=== PATIENT | female | born 2000 | race American Indian/Alaskan Native ===

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

== ENCOUNTER 2019-08-22 22:39 | Emergency (ER) | payer MEDICAID ==
[2019-08-22 22:57] VITALS: BP 138/87; PULSE 100
--- NOTE | 2019-08-23 02:15 | EDM.PDOC ---
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 Patient states she has had 2 positive tests at home in the past week. Patient states she was to last have a Depo-Provera shot in December, and did not get it. Patient states she has not had a normal period in several months, so is unsure of how far along she is. patient states today at work when going to the bathroom, she had some spotting when wiping. States she has not saturated a pad. Patient states this would be her second . Patient admits to cramping and low back pain. Patient denies any urinary symptoms, frequency, urgency, burning with urination. Onset: Today, Sudden Abdomen Pain Score (Numeric/FACES): 5 - Related Data Allergies Allergy/AdvReac Type Severity Reaction Status Date / Time Penicillins Allergy Cannot Verified 08/22/19 23:04 Remember Home Meds: Home Meds . 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: Psychiatric History: Reports: Depression, Other (See Below) Other Psychiatric History: history of cutting- noted cuts on bilateral arms Hematologic History: Reports: Anemia, Other (See Below) Other Hematologic History: requiring blood transfusion Social & Family History - Family History Family Medical History: Noncontributory - Tobacco Use Smoking Status *Q: Never Smoker Second Hand Smoke Exposure: No - Caffeine Use Caffeine Use: Reports: Coffee, Soda, Tea - Recreational Drug Use Recreational Drug Use: No - Living Situation & Occupation Living situation: Reports: with Significant Other ED ROS GENERAL - Review of Systems Review Of Systems: Comprehensive ROS is negative, except as noted in HPI. ED EXAM - Physical Exam Exam: See Below Exam Limited By: No Limitations General Appearance: Alert, WD/WN, No Apparent Distress Eye Exam: Bilateral Eye: EOMI, Normal Inspection Ears: Normal External Exam, Hearing Grossly Normal Nose: Normal Inspection Throat/Mouth: Normal Inspection, Normal Voice, No Airway Compromise Head: Atraumatic, Normocephalic Neck: Normal Inspection, Supple, Non-Tender, Full Range of Motion Respiratory/Chest: No Respiratory Distress, Lungs Clear, Normal Breath Sounds, No Accessory Muscle Use, Chest Non-Tender Cardiovascular: Normal Peripheral Pulses, Regular Rate, Rhythm, No Edema, No Gallop, No JVD, No Murmur, No Rub GI/Abdominal Exam: Normal Bowel Sounds, Soft, Non-Tender, No Organomegaly, No Distention, No Abnormal Bruit, No Mass, Pelvis Stable Rectal Exam: Deferred (Female) Exam: Normal Speculum Exam. No: Products of Conception, Tissue Present in Cervix/Vagina, Vaginal Bleeding Movement: Not Appreciated Back Exam: Normal Inspection, Full Range of Motion, NT Extremities: Normal Inspection, Normal Range of Motion, Non-Tender, Normal Capillary Refill, No Pedal Edema Neurological: Alert, Oriented, CN II-XII Intact, Normal Cognition, Normal Gait, Normal Reflexes, No Motor/Sensory Deficits Psychiatric: Normal Affect, Normal Mood Skin Exam: Warm, Dry, Intact, Normal Color, No Rash Lymphatic: No Adenopathy Course - Vital Signs Last Recorded V/S: Last Vital Signs Temp 96.1 F L 08/22/19 22:44 Pulse 100 08/22/19 22:44 Resp 19 08/22/19 22:44 BP 138/87 08/22/19 22:44 Pulse Ox 100 08/22/19 22:44 - Orders/Labs/Meds Orders: Active Orders 24 hr Category Date Time Status Heart Rate [RC] CONTINUOUS Care 08/22/19 22:48 Active POC Labs [RC] ASDIRECTED Care 08/22/19 22:48 Active CHLAMYDIA AND GONORRHEA BY TMA Routine Lab 08/22/19 22:42 Received CULTURE URINE [RM] Routine Lab 08/22/19 22:57 Received HBSAG SCREEN [REF] Urgent Lab 08/22/19 23:01 Received HEP C VIRUS AB [REF] Urgent Lab 08/22/19 23:01 Received RPR (SYPHILIS SERO) W/ RFLX [REF] Routine Lab 08/22/19 23:01 Received RUBELLA ANTIBODY, IGG [REF] Routine Lab 08/22/19 23:01 Received Labs: Laboratory Tests 08/22/19 08/22/19 08/22/19 Range/Units 22:57 22:57 23:01 WBC 9.8 (5.0-10.0) 10^3/uL RBC 4.64 (4.2-5.4) 10^6/uL Hgb 11.4 L (12.0-16.0) g/dL Hct 35.5 L (37.0-47.0) % MCV 76.5 L D (80-100) fL MCH 24.6 L (27.0-34.0) pg MCHC 32.1 L (33.0-35.0) g/dL Plt Count 302 (150-450) 10^3/uL HCG, Quant (0-25) mIU/ml Beta HCG, Quant mIU/ml Urine Color Yellow (YELLOW) Urine Appearance Slightly cloudy (CLEAR) Urine pH 7.0 (5.0-9.0) Ur Specific [place] 1.025 (1.005-1.030) Urine Protein Negative (NEGATIVE) Urine Glucose (UA) Negative (NEGATIVE) Urine Ketones Negative (NEGATIVE) Urine Occult Blood Negative (NEGATIVE) Urine Nitrite Negative (NEGATIVE) Urine Bilirubin Negative (NEGATIVE) Urine Urobilinogen 1.0 (0.2-1.0) mg/dL Ur Leukocyte Esterase Moderate H (NEGATIVE) Urine RBC 0-5 /HPF Urine WBC 10-20 H (0-5/HPF) /HPF Ur Epithelial Cells Few (NOT SEEN) /HPF Amorphous Sediment Few (NOT SEEN) /HPF Urine Bacteria Moderate H (0-FEW/HPF) /HPF Urine Mucus Few H (NOT SEEN) /LPF Urine Opiates Screen Negative (NEGATIVE) Ur Oxycodone Screen Negative (NEGATIVE) Urine Methadone Screen Negative (NEGATIVE) Ur Barbiturates Screen Negative (NEGATIVE) U Tricyclic Antidepress Negative (NEGATIVE) Ur Phencyclidine Scrn Negative (NEGATIVE) Ur Amphetamine Screen Negative (NEGATIVE) U Methamphetamines Scrn Negative (NEGATIVE) Urine MDMA Screen Negative (NEGATIVE) U Benzodiazepines Scrn Negative (NEGATIVE) Urine Cocaine Screen Negative (NEGATIVE) U Marijuana (THC) Screen Negative (NEGATIVE) HIV-1 Antibody (NONREACTIVE) HIV-2 Antibody (NONREACTIVE) HIV P24 Antigen (NONREACTIVE) Blood Type Gel Antibody Screen 08/22/19 08/22/19 08/22/19 Range/Units 23:01 23:01 23:01 WBC (5.0-10.0) 10^3/uL RBC (4.2-5.4) 10^6/uL Hgb (12.0-16.0) g/dL Hct (37.0-47.0) % MCV (80-100) fL MCH (27.0-34.0) pg MCHC (33.0-35.0) g/dL Plt Count (150-450) 10^3/uL HCG, Quant > 1350 H (0-25) mIU/ml Beta HCG, Quant 88365 mIU/ml Urine Color (YELLOW) Urine Appearance (CLEAR) Urine pH (5.0-9.0) Ur Specific [place] (1.005-1.030) Urine Protein (NEGATIVE) Urine Glucose (UA) (NEGATIVE) Urine Ketones (NEGATIVE) Urine Occult Blood (NEGATIVE) Urine Nitrite (NEGATIVE) Urine Bilirubin (NEGATIVE) Urine Urobilinogen (0.2-1.0) mg/dL Ur Leukocyte Esterase (NEGATIVE) Urine RBC /HPF Urine WBC (0-5/HPF) /HPF Ur Epithelial Cells (NOT SEEN) /HPF Amorphous Sediment (NOT SEEN) /HPF Urine Bacteria (0-FEW/HPF) /HPF Urine Mucus (NOT SEEN) /LPF Urine Opiates Screen (NEGATIVE) Ur Oxycodone Screen (NEGATIVE) Urine Methadone Screen (NEGATIVE) Ur Barbiturates Screen (NEGATIVE) U Tricyclic Antidepress (NEGATIVE) Ur Phencyclidine Scrn (NEGATIVE) Ur Amphetamine Screen (NEGATIVE) U Methamphetamines Scrn (NEGATIVE) Urine MDMA Screen (NEGATIVE) U Benzodiazepines Scrn (NEGATIVE) Urine Cocaine Screen (NEGATIVE) U Marijuana (THC) Screen (NEGATIVE) HIV-1 Antibody Non-reactive (NONREACTIVE) HIV-2 Antibody Non-reactive (NONREACTIVE) HIV P24 Antigen Non-reactive (NONREACTIVE) Blood Type O POSITIVE Gel Antibody Screen Negative - Radiology Interpretation Free Text/Narrative:: OB Ultrasound: FINDINGS: GESTATION: Gestation: Intrauterine gestation is evident at 6 weeks 5 days by crown-rump length. Heart rate: Cardiac activity present at 139 bpm. BIOMETRY: Estimated due date: Estimated date of delivery 04/10/2020. MATERNAL: Uterus: Uterus is 9 x 6 x 5.5 cm. Right adnexa: Right ovary is 3.5 x 2.6 x 2.4 cm with unremarkable appearance. Normal flow. Anechoic cyst measuring 2.4 x 2 x 1.6 cm. Left adnexa: Left ovary is 2.3 x 1.5 x 1.6 cm. Normal arterial flow. Intraperitoneal: No free pelvic fluid. IMPRESSION: 1. Viable intrauterine gestation at 6 weeks 5 days gestational age 2. Anechoic right ovarian cyst measuring 2.4 cm. Thank you for allowing us to participate in the care of your patient. Dictated and Authenticated by: Romeo Garg MD 08/23/2019 2:00 AM Central Time ([place] & [place]) See rad report Departure - Departure Time of Disposition: 02:13 Disposition: Home, Self-Care 01 Condition: Good Clinical Impression: Threatened , First trimester - Discharge Information *PRESCRIPTION DRUG MONITORING PROGRAM REVIEWED*: No *COPY OF PRESCRIPTION DRUG MONITORING REPORT IN PATIENT CAMPBELL: No Instructions: First Trimester of , [id number], Threatened Miscarriage, [id number] Forms: ED Department Discharge Additional Instructions: Follow up with your primary care facility in 3-5 weeks Begin taking a vitamin Drink plenty of water Return to ER with large amounts of bleeding Sepsis Event Note - Evaluation Sepsis Screening Result: No Definite Risk - Focused Exam Vital Signs: Vital Signs Temp Pulse Resp BP Pulse Ox 08/22/19 22:44 96.1 F L 100 19 138/87 100 Date Exam was Performed: 08/23/19 Time Exam was Performed: 04:03 - My Orders Last 24 Hours: My Active Orders 08/22/19 22:42 CHLAMYDIA AND GONORRHEA BY TMA Routine 08/22/19 22:48 Heart Rate [RC] CONTINUOUS POC Labs [RC] ASDIRECTED 08/22/19 22:57 CULTURE URINE [RM] Routine 08/22/19 23:01 HBSAG SCREEN [REF] Urgent HEP C VIRUS AB [REF] Urgent RPR (SYPHILIS SERO) W/ RFLX [REF] Routine RUBELLA ANTIBODY, IGG [REF] Routine - Assessment/Plan Last 24 Hours: My Active Orders 08/22/19 22:42 CHLAMYDIA AND GONORRHEA BY TMA Routine 08/22/19 22:48 Heart Rate [RC] CONTINUOUS POC Labs [RC] ASDIRECTED 08/22/19 22:57 CULTURE URINE [RM] Routine 08/22/19 23:01 HBSAG SCREEN [REF] Urgent HEP C VIRUS AB [REF] Urgent RPR (SYPHILIS SERO) W/ RFLX [REF] Routine RUBELLA ANTIBODY, IGG [REF] Routine
== END 2019-08-23 02:25 | disposition home or self-care (01) ==
LOC: DL.ED 22:39
DX: O20.0 Threatened abortion (principal); Z88.0 Allergy status to penicillin; Z3A.01 Less than 8 weeks gestation of pregnancy
CPT/HCPCS: 36415; 76815; 76817; 80305-QW; 81001; 84702; 85027; 86592; 86593; 86762; 86803; 86850; 86900; 86901; 87086; 87210; 87340; 87389; 87491; 87591; 99284-25

== ENCOUNTER 2020-01-28 21:27 | Emergency (ER) | payer BC, MEDICAID ==
[2020-01-28 21:38] VITALS: BP 120/75; PULSE 109
--- NOTE | 2020-01-28 22:12 | EDM.PDOC ---
ED HPI GENERAL MEDICAL PROBLEM - General Stated Complaint: SORE THROAT Time Seen by Provider: 01/28/20 22:00 Source of Information: Reports: Patient History Limitations: Reports: No Limitations - History of Present Illness INITIAL COMMENTS - FREE TEXT/NARRATIVE: This 19 yo female patient reports to the ED with a sore throat that started yesterday. The patient reports she took some cough medications yesterday, but she has not taken anything other than that. Onset Date: 01/27/20 Duration: Constant Location: Reports: Neck Quality: Reports: Other Severity: Moderate Improves with: Reports: None Worsens with: Reports: None Context: Reports: Other Associated Symptoms: Reports: No Other Symptoms Throat Pain Score (Numeric/FACES): 5 - Related Data Allergies Allergy/AdvReac Type Severity Reaction Status Date / Time Penicillins Allergy Cannot Verified 01/28/20 21:32 Remember Home Meds: Home Meds Vit37/Iron/Folic Acid [[place]] 1 tab PO DAILY 01/28/20 [History] Past Medical History - Past Health History Medical/Surgical History: Denies Medical/Surgical History [employer] History: Reports: Psychiatric History: Reports: Depression, Other (See Below) Other Psychiatric History: history of cutting- noted cuts on bilateral arms Hematologic History: Reports: Anemia, Other (See Below) Other Hematologic History: requiring blood transfusion Social & Family History - Family History Family Medical History: Noncontributory - Tobacco Use Smoking Status *Q: Never Smoker Second Hand Smoke Exposure: No - Caffeine Use Caffeine Use: Reports: Coffee - Recreational Drug Use Recreational Drug Use: No - Living Situation & Occupation Living situation: Reports: with Significant Other ED ROS ENT - Review of Systems Review Of Systems: Comprehensive ROS is negative, except as noted in HPI. ED EXAM, ENT - Physical Exam Exam: See Below Exam Limited By: No Limitations General Appearance: Alert, WD/WN, Mild Distress Eye Exam: Bilateral Eye: EOMI, Normal Inspection, PERRL Ears: Normal External Exam, Normal Canal, Hearing Grossly Normal, Normal TMs Nose: Normal Inspection, Normal Mucousa, No Blood Mouth/Throat: Normal Inspection, Normal Gums, Normal Lips, Normal Oropharynx, Normal Teeth Head: Atraumatic, Normocephalic Neck: Normal Inspection, Supple, Non-Tender, Full Range of Motion Respiratory/Chest: No Respiratory Distress, Lungs Clear, Normal Breath Sounds, No Accessory Muscle Use, Chest Non-Tender Cardiovascular: Normal Peripheral Pulses, Regular Rate, Rhythm, No Edema, No Gallop, No JVD, No Murmur, No Rub GI/Abdominal: Normal Bowel Sounds, Soft, Non-Tender, No Organomegaly, No Distention, No Abnormal Bruit, No Mass (Female) Exam: Deferred Rectal (Female) Exam: Deferred Back: Normal Inspection Extremities: Normal Inspection, Normal Range of Motion, Non-Tender, No Pedal Edema, Normal Capillary Refill Neurological: Alert, Oriented, CN II-XII Intact, Normal Cognition, Normal Gait, Normal Reflexes, No Motor/Sensory Deficits Psychiatric: Normal Affect, Normal Mood Skin: Warm, Dry, Intact, Normal Color, No Rash Lymphatic: No Adenopathy Course - Vital Signs Last Recorded V/S: Last Vital Signs Temp 36.2 C 01/28/20 21:33 Pulse 109 H 01/28/20 21:33 Resp 20 01/28/20 21:33 BP 120/75 01/28/20 21:33 Pulse Ox 100 01/28/20 21:33 - Orders/Labs/Meds Orders: Active Orders 24 hr Category Date Time Status CULTURE STREP A CONFIRMATION [RM] Stat Lab 01/28/20 21:28 Results STREP SCRN A RAPID W CULT CONF [RM] Stat Lab 01/28/20 21:28 Results Departure - Departure Time of Disposition: 22:11 Disposition: Home, Self-Care 01 Condition: Fair Clinical Impression: Sore throat (viral) - Discharge Information *PRESCRIPTION DRUG MONITORING PROGRAM REVIEWED*: Not Applicable *COPY OF PRESCRIPTION DRUG MONITORING REPORT IN PATIENT CAMPBELL: Not Applicable Instructions: Sore Throat, [id number] Forms: ED Department Discharge Care Plan Goals: The patient was advised of the examination and lab results during the visit. The patient was encouraged to take over the counter medications for temporary symptom relief. If the patient has any additional symptoms or concerns, the patient should either return to the emergency department or visit her primary care facility. Sepsis Event Note (ED) - Evaluation Sepsis Screening Result: No Definite Risk - Focused Exam Vital Signs: Vital Signs Temp Pulse Resp BP Pulse Ox 01/28/20 21:33 36.2 C 109 H 20 120/75 100 - My Orders Last 24 Hours: My Active Orders 01/28/20 21:28 CULTURE STREP A CONFIRMATION [RM] Stat STREP SCRN A RAPID W CULT CONF [RM] Stat - Assessment/Plan Last 24 Hours: My Active Orders 01/28/20 21:28 CULTURE STREP A CONFIRMATION [RM] Stat STREP SCRN A RAPID W CULT CONF [RM] Stat
== END 2020-01-28 22:15 | disposition home or self-care (01) ==
LOC: DL.ED 21:27
DX: J02.9 Acute pharyngitis, unspecified (principal); Z88.0 Allergy status to penicillin; Z79.899 Other long term (current) drug therapy
CPT/HCPCS: 87081; 87430; 99282; 99283

== ENCOUNTER 2020-04-06 01:49 | Inpatient (IN) | payer BC, MEDICAID ==
[2020-04-06] MEDS: Lactated Ringers 1,000 ML IV SCH ×3 (01:50→04:13)
[2020-04-06] MEDS ORDERED: Ondansetron 4 MG/2 ML SDV IVPUSH PRN (01:58)
[2020-04-06] MEDS ORDERED: fentaNYL 100 MCG/2 ML SDV ONE (02:01)
[2020-04-06] MEDS ORDERED: fentaNYL 100 MCG/2 ML SDV ITHECAL ONE (02:02)
[2020-04-06] MEDS ORDERED: EPINEPHrine 1 MG/1 ML Amp ONE ×2 (02:02)
[2020-04-06] MEDS ORDERED: Carboprost Tromethamine 250 MCG/1 ML Amp ONE (02:19)
[2020-04-06] MEDS ORDERED: Methylergonovine 0.2 MG/1 ML Amp ONE (02:19)
[2020-04-06] MEDS ORDERED: Misoprostol 400 MCG (4 X 100 MCG TAB) ONE (02:19)
--- NOTE | 2020-04-06 02:34 | PCM.PRNOTE ---
- Free Text/Narrative Note: Requested to provide analgesia to full term patient in severe pain. Upon entering the room, patient is sitting on edge of bed complaining of severe abdominal/pelvic pain and discomfort. Procedure was discussed with patient including adverse outcomes and expectations. Pt consented to analgesia, SAB/IT. Pt placed into a proper sitting position. Landmarks for SAB/IT were identified and marked. Hands were washed and appropriate PPE was applied. Back was prepped with betadine x3. A sterile, transparent, fenestrated drape was applied. Excess betadine was removed. Using 3 mL of a 1% lidocaine solution, a skin wheel was placed at the L2/L3 interspace. A 24 ga (4 inch) Pencan spinal needle was inserted until positive for CSF. Negative for heme or paresthesias. Injected fentanyl 30 mcg, sufentanil 25 mcg, and 7.5 mg of a 0.75% bupivacaine solution with an epi wash. Pt was placed left lateral tilt position for approximately 20 minutes. There were zero complications or adverse outcomes. Will continue to monitor. Procedure Date & Time: 04/06/20 [id number]
[2020-04-06] MEDS ORDERED: Tranexamic Acid 1,000 MG in Sodium Chloride 0.9% 100 ML IV PRN (02:48)
[2020-04-06] MEDS ORDERED: Acetaminophen 325 MG Tab PO PRN (02:48)
[2020-04-06] MEDS ORDERED: Lidocaine 1% 30 ML SDV INJECT PRN (02:48)
[2020-04-06] MEDS ORDERED: Misoprostol 400 MCG (4 X 100 MCG TAB) RECTAL PRN (02:48)
[2020-04-06] MEDS ORDERED: Methylergonovine 0.2 MG/1 ML Amp IM PRN (02:48)
[2020-04-06] MEDS ORDERED: Sodium Chloride 0.9% 10 ML Syringe FLUSH PRN (02:48)
[2020-04-06] MEDS ORDERED: Carboprost Tromethamine 250 MCG/1 ML Amp IM PRN (02:48)
[2020-04-06] MEDS: Oxytocin/Normal Saline 30 UNIT/500 ML BAG IV SCH ×2 (05:10→06:27)
[2020-04-06] MEDS ORDERED: Simethicone 80 MG Tab.Chew PO PRN (05:38)
[2020-04-06] MEDS ORDERED: Benzocaine/Menthol 20%-0.5% Spray 56 GM Canister TOP PRN (05:38)
[2020-04-06] MEDS ORDERED: Oxytocin 10 Units/1 ML SDV IM PRN (05:38)
--- NOTE | 2020-04-06 05:45 | PCM.LDHP ---
L&D History of Present Illness - General Date of Service: 04/06/20 Admit Problem/Dx: Patient Status Order with Admit Dx/Problem 04/06/20 01:15 Patient Status [ADT] Routine Admission Diagnosis/Problem Admission Diagnosis/Problem Labor established Source of Information: Patient History Limitations: Reports: No Limitations - History of Present Illness Introduction:: 19-year-old at 40w0d presents to L&D for increased contractions. Contractions started to increase in frequency and severity around 2200 on 04/05/2020. Patient arrived to L&D at 0100 on 04/06 and noted that contractions were 3-5 minutes apart. No vaginal bleeding or leaking of fluid. Baby has been active. No new headaches or vision changes. 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: Psychiatric History: Reports: Depression, Other (See Below) Other Psychiatric History: history of cutting- noted cuts on bilateral arms Hematologic History: Reports: Anemia, Other (See Below) Other Hematologic History: requiring blood transfusion - Past Surgical History HEENT Surgical History: Reports: None Social & Family History - Family History Family Medical History: Noncontributory - Caffeine Use Caffeine Use: Reports: Coffee - Living Situation & Occupation Living situation: Reports: with Significant Other H&P Review of Systems - Review of Systems: Review Of Systems: See Below General: Reports: No Symptoms HEENT: Reports: No Symptoms Pulmonary: Reports: No Symptoms Cardiovascular: Reports: No Symptoms Gastrointestinal: Reports: No Symptoms Musculoskeletal: Reports: Back Pain Skin: Reports: No Symptoms Neurological: Reports: No Symptoms L&D Exam - Exam Exam: See Below - Vital Signs Weight: 92.986 kg - OB Specific Contraction Intensity: Moderate to Strong Movement: Active Heart Tones: Present Heart Tones per Min: 135 Heart Rate (FHR) Variability: Moderate (6-25 bmp) Presentation: Vertex - Rosario Score Rosario Score Cervix Position: Anterior Rosario Score Consistency: Soft Rosario Score Effacement: >80% Rosario Score Dilation: > 5 cm Rosario Score Infant's Station: -1 ,0 Rosario Score Total: 12 - Exam General: Alert, Oriented HEENT: Conjunctiva Clear Lungs: Clear to Auscultation, Normal Respiratory Effort Cardiovascular: Regular Rate, Regular Rhythm Extremities: Normal Inspection, Non-Tender, No Pedal Edema Skin: Warm, Dry, Intact - Patient Data Lab Results Last 24 hrs: Laboratory Results - last 24 hr 04/06/20 04/06/20 04/06/20 Range/Units 00:45 01:50 01:50 WBC 8.4 (5.0-10.0) 10^3/uL RBC 4.30 (4.2-5.4) 10^6/uL Hgb 8.9 L D (12.0-16.0) g/dL Hct 30.1 L (37.0-47.0) % MCV 70.0 L D (80-100) fL MCH 20.7 L (27.0-34.0) pg MCHC 29.6 L (33.0-35.0) g/dL Plt Count 340 (150-450) 10^3/uL SARS CoV-2 RNA Rapid HARRY Negative (NEGATIVE) Blood Type O POSITIVE Gel Antibody Screen Negative Result Diagrams: 04/06/20 01:50 - Problem List (1) care in third trimester SNOMED Code(s): 354462688, 23041703, 50306480, 552524632, 027519999 ICD Code: Z34.93 - ENCNTR FOR SUPRVSN OF NORMAL PREG, UNSP, THIRD TRIMESTER Status: Acute Current Visit: Yes (2) Anemia affecting in third trimester SNOMED Code(s): 34674877, 71425475 ICD Code: O99.013 - ANEMIA COMPLICATING , THIRD TRIMESTER Status: Acute Current Visit: Yes (3) Tobacco use affecting in third trimester, antepartum SNOMED Code(s): 143857341, 432964977, 743701471 ICD Code: O99.333 - SMOKING (TOBACCO) COMPLICATING , THIRD TRIMESTER Status: Acute Current Visit: Yes (4) Rubella non-immune status, antepartum SNOMED Code(s): 975953372 ICD Code: O99.891 - OTH DISEASES AND CONDITIONS COMPLICATING ; Z28.3 - UNDERIMMUNIZATION STATUS Status: Acute Current Visit: Yes (5) Late care SNOMED Code(s): 575379018, 741703781 ICD Code: O09.30 - SUPRVSN OF PREG W INSUFFICIENT ANTENAT CARE, UNSP TRIMESTER Status: Acute Current Visit: Yes (6) Chlamydia infection affecting SNOMED Code(s): 9241879374666 ICD Code: O98.819 - OTH MATERNAL INFEC/PARASTC DISEASES COMP PREG, UNSP TRI; A74.9 - CHLAMYDIAL INFECTION, UNSPECIFIED Status: Acute Priority: Low Current Visit: Yes Problem Details: Tested positive, was treated, repeat testing was negative Problem List Initiated/Reviewed/Updated: Yes Orders Last 24hrs: Active Orders 24 hr Category Date Time Status Patient Status [ADT] Routine ADT 04/06/20 01:15 Active Notify Provider Vital Signs OB [RC] ASDIRECTED Care 04/06/20 05:38 Ordered Up ad Edvi [RC] ASDIRECTED Care 04/06/20 02:48 Active Up ad Devi [RC] ASDIRECTED Care 04/06/20 05:38 Ordered Vital Signs [RC] PFP Care 04/06/20 05:38 Ordered Regular Diet [DIET] Diet 04/06/20 Breakfast Ordered CBC W/O DIFF,HEMOGRAM [HEME] Routine Lab 04/07/20 06:00 Ordered RPR (SYPHILIS SERO) W/ RFLX [REF] Routine Lab 04/07/20 06:00 Ordered Acetaminophen [TylenoL] Med 04/06/20 02:48 Active 650 mg PO Q4H PRN Benzocaine/Menthol [Dermoplast Pain Relief [place]] Med 04/06/20 05:38 Ordered See Dose Instructions TOP Q4H PRN Carboprost Tromethamine [Hemabate DS] Med 04/06/20 02:48 Active 250 mcg IM ASDIRECTED PRN Docusate Sodium [Colace] Med 04/06/20 05:38 Ordered 100 mg PO BID PRN Ferrous Sulfate Med 04/06/20 09:00 Ordered 325 mg PO BID Ibuprofen [Motrin] Med 04/06/20 05:38 Ordered 800 mg PO Q8H PRN Lactated Ringers [Ringers, Lactated] 1,000 ml Med 04/06/20 02:00 Active IV ASDIRECTED Lidocaine 1% [Xylocaine-MPF 1%] Med 04/06/20 02:48 Active 30 ml INJECT ASDIRECTED PRN Methylergonovine [Methergine] Med 04/06/20 02:48 Active 0.2 mg IM ASDIRECTED PRN Ondansetron [Zofran] Med 04/06/20 01:58 Active 4 mg IVPUSH Q4H PRN Oxytocin [Pitocin] Med 04/06/20 05:38 Ordered 10 unit IM ONETIME PRN Oxytocin/Normal Saline [Pitocin in NS 30 UNIT/500 ML] Med 04/06/20 02:00 Active 30 unit in 500 ml IV TITRATE Vit with Ca/FA/Iron [ Plus Iron] Med 04/06/20 09:00 Ordered 1 each PO DAILY Simethicone Med 04/06/20 05:38 Ordered 80 mg PO Q4H PRN Sodium Chloride 0.9% [Saline Flush] Med 04/06/20 02:48 Active 10 ml FLUSH ASDIRECTED PRN Tranexamic Acid [Cyklokapron] 1,000 mg Med 04/06/20 02:48 Active Sodium Chloride 0.9% [Normal Saline] 100 ml IV ONETIME miSOPROStoL [Cytotec] Med 04/06/20 02:48 Active 800 mcg RECTAL ASDIRECTED PRN witch M[place] [Medi-Pads] Med 04/06/20 05:38 Ordered 1 each TOP Q4HR PRN Assess Lochia [WOMSER] Per Unit Routine Oth 04/06/20 05:38 Ordered Assess Uterine Involution [WOMSER] Per Unit Routine Oth 04/06/20 05:38 Ordered Breast Pump [WOMSER] Per Unit Routine Oth 04/06/20 05:38 Ordered Ice Therapy [OM.PC] Per Unit Routine Oth 04/06/20 05:38 Ordered Perineal Care [OM.PC] Per Unit Routine Oth 04/06/20 05:38 Ordered Saline Lock Insert [OM.PC] Routine Oth 04/06/20 02:48 Ordered Sitz Bath [OM.PC] Per Unit Routine Oth 04/06/20 05:38 Ordered Resuscitation Status Routine Resus Stat 04/06/20 05:38 Ordered Medication Orders Acetaminophen (Tylenol) 650 mg PO Q4H PRN PRN Reason: Pain (Mild 1-3) and fever Carboprost Tromethamine (Hemabate Ds) 250 mcg IM ASDIRECTED PRN PRN Reason: HEMORRHAGE Lactated Ringer's (Ringers, Lactated) 1,000 mls @ 125 mls/hr IV ASDIRECTED NOMI Last Admin: 04/06/20 04:13 Dose: 125 mls/hr Documented by: Infusion: 04/06/20 04:13 Dose: 125 mls/hr Documented by: Admin: 04/06/20 02:30 Dose: 125 mls/hr Documented by: Infusion: 04/06/20 02:30 Dose: 125 mls/hr Documented by: Admin: 04/06/20 01:50 Dose: 125 mls/hr Documented by: LUIS Oxytocin/Sodium Chloride (Pitocin In Ns 30 Unit/500 Ml) 30 unit in 500 mls @ 2 mls/hr IV TITRATE NOMI; Protocol Tranexamic Acid 1,000 mg/ (Sodium Chloride) 110 mls @ 660 mls/hr IV ONETIME PRN PRN Reason: Bleeding Lidocaine HCl (Xylocaine-Mpf 1%) 30 ml INJECT ASDIRECTED PRN PRN Reason: Perineal Repair Methylergonovine Maleate (Methergine) 0.2 mg IM ASDIRECTED PRN PRN Reason: Hemorrhage Misoprostol (Cytotec) 800 mcg RECTAL ASDIRECTED PRN PRN Reason: Hemorrhage Ondansetron HCl (Zofran) 4 mg IVPUSH Q4H PRN PRN Reason: Nausea/Vomiting Last Admin: 04/06/20 02:05 Dose: 4 mg Documented by: LUIS Sodium Chloride (Saline Flush) 10 ml FLUSH ASDIRECTED PRN PRN Reason: Keep Vein Open Assessment/Plan Comment:: 1. Admit to L&D and initiate routine intrapartum orders 2. Patient does desire intrathecal 3. AROM when patient more comfortable 4. Expectant management. Anticipate Charissa Mckeon MD
--- NOTE | 2020-04-06 05:57 | PCM.DEL ---
L & D Note - General Info Date of Service: 04/06/20 Mother's Due Date: 04/06/20 - Delivery Note Labor: Spontaneous Delivery Outcome: Livebirth Infant Delivery Method: Spontaneous Vaginal Delivery-Single Presentation: Vertex Nuchal Cord: None Prep: Povidone-Iodine (Betadine Anesthesia Type: Intrathecal, Local Anesthetic: Lidocaine (Xylocaine) 1% Plain Local Anesthetic Volume: 4cc Amniotic Fluid Description: Clear Episiotomy Type: None Laceration: Labial (Bilateral) Suture type: Vicryl Suture size: 4-0 Placenta: Intact, Spontaneous Cord: 3 Vessels Estimated Blood Loss: 300 : Bulb Syringe, Stimulated, Warmed, Fine Used Score 1 min: 8 Score 5 min: 9 Delivery Comments (Free Text/Narrative):: 19-year-old presented to L&D in active labor. She was noted to be 5 cm upon admission. Patient tested negative for COVID. She did desire an intrathcal so this was performed. Patient SROM'd and rapidly progressed to complete dilation at 0430. Patient began to push around 0450. Initially, patient had difficulty pushing; however, after a couple of attempts, patient started pushing well and delivered a viable male infant after 2 contractions. Infant was placed on the mother's chest. Apgars were noted to be 8 and 9 at 1 and 5 minutes respectively. Cord was clamped x 2 and cut. Cord blood was collected. The placenta delivered shortly after and was noted to be intact. Bleeding was initially brisk. Pitocin rate was increased to 999 ml/hr and uterine massage was performed. Bleeding improved about 1 minute later. Perineum was inspected and noted to be intact. Bilateral labial lacerations were also noted. These both continued to bleed despite application of pressure so each laceration was repaired with 4-0 Vicryl suture in a running fashion. Uterine tone was noted to be firm, and bleeding was noted to be appropriate. Patient tolerated the procedure well, and there were no immediate complications. - General Info Date of Service: 04/06/20 - Patient Data Weight - Most Recent: 92.986 kg Lab Results Last 24 Hours: Laboratory Results - last 24 hr 04/06/20 04/06/20 04/06/20 Range/Units 00:45 01:50 01:50 WBC 8.4 (5.0-10.0) 10^3/uL RBC 4.30 (4.2-5.4) 10^6/uL Hgb 8.9 L D (12.0-16.0) g/dL Hct 30.1 L (37.0-47.0) % MCV 70.0 L D (80-100) fL MCH 20.7 L (27.0-34.0) pg MCHC 29.6 L (33.0-35.0) g/dL Plt Count 340 (150-450) 10^3/uL SARS CoV-2 RNA Rapid HARRY Negative (NEGATIVE) Blood Type O POSITIVE Gel Antibody Screen Negative Med Orders - Current: Current Medications Acetaminophen (Tylenol) 650 mg PO Q4H PRN PRN Reason: Pain (Mild 1-3) and fever Benzocaine/Menthol (Dermoplast Pain Relief [place]) 0 gm TOP Q4H PRN PRN Reason: Perineal comfort measures Carboprost Tromethamine (Hemabate Ds) 250 mcg IM ASDIRECTED PRN PRN Reason: HEMORRHAGE Docusate Sodium (Colace) 100 mg PO BID PRN PRN Reason: Constipation Ferrous Sulfate (Ferrous Sulfate) 325 mg PO BID NOMI Lactated Ringer's (Ringers, Lactated) 1,000 mls @ 125 mls/hr IV ASDIRECTED NOMI Last Admin: 04/06/20 04:13 Dose: 125 mls/hr Documented by: Oxytocin/Sodium Chloride (Pitocin In Ns 30 Unit/500 Ml) 30 unit in 500 mls @ 2 mls/hr IV TITRATE NOMI; Protocol Tranexamic Acid 1,000 mg/ (Sodium Chloride) 110 mls @ 660 mls/hr IV ONETIME PRN PRN Reason: Bleeding Ibuprofen (Motrin) 800 mg PO Q8H PRN PRN Reason: Mild Pain or Fever Lidocaine HCl (Xylocaine-Mpf 1%) 30 ml INJECT ASDIRECTED PRN PRN Reason: Perineal Repair Methylergonovine Maleate (Methergine) 0.2 mg IM ASDIRECTED PRN PRN Reason: Hemorrhage Misoprostol (Cytotec) 800 mcg RECTAL ASDIRECTED PRN PRN Reason: Hemorrhage Ondansetron HCl (Zofran) 4 mg IVPUSH Q4H PRN PRN Reason: Nausea/Vomiting Last Admin: 04/06/20 02:05 Dose: 4 mg Documented by: Oxytocin (Pitocin) 10 unit IM ONETIME PRN PRN Reason: Bleeding Prenat Multivit/[place]/Iron/Folic Ac ( Plus Iron) 1 each PO DAILY NOMI Simethicone (Simethicone) 80 mg PO Q4H PRN PRN Reason: Gas Sodium Chloride (Saline Flush) 10 ml FLUSH ASDIRECTED PRN PRN Reason: Keep Vein Open Witch Colleen (Medi-Pads) 1 each TOP Q4HR PRN PRN Reason: Perineal Comfort Measure Discontinued Medications Carboprost Tromethamine (Hemabate Ds) Confirm Administered Dose 250 mcg .ROUTE .STK-MED ONE Stop: 04/06/20 02:20 Last Admin: 04/06/20 02:55 Dose: Not Given Documented by: Epinephrine HCl (Adrenalin) Confirm Administered Dose 1 mg .ROUTE .STK-MED ONE Stop: 04/06/20 02:03 Last Admin: 04/06/20 02:54 Dose: Not Given Documented by: Fentanyl (Sublimaze) Confirm Administered Dose 100 mcg .ROUTE .STK-MED ONE Stop: 04/06/20 02:02 Last Admin: 04/06/20 02:54 Dose: Not Given Documented by: Methylergonovine Maleate (Methergine) Confirm Administered Dose 0.2 mg .ROUTE .STK-MED ONE Stop: 04/06/20 02:20 Last Admin: 04/06/20 02:55 Dose: Not Given Documented by: Misoprostol (Cytotec) Confirm Administered Dose 800 mcg .ROUTE .STK-MED ONE Stop: 04/06/20 02:20 Last Admin: 04/06/20 02:55 Dose: Not Given Documented by: Sufentanil Citrate (Sufenta) Confirm Administered Dose 50 mcg .ROUTE .STK-MED ONE Stop: 04/06/20 02:03 Last Admin: 04/06/20 02:54 Dose: Not Given Documented by: - Problem List & Annotations (1) care in third trimester SNOMED Code(s): 223596784, 08668565, 96420663, 292600080, 578971070 Code(s): Z34.93 - ENCNTR FOR SUPRVSN OF NORMAL PREG, UNSP, THIRD TRIMESTER Status: Acute Current Visit: Yes (2) Anemia affecting in third trimester SNOMED Code(s): 37622472, 83192298 Code(s): O99.013 - ANEMIA COMPLICATING , THIRD TRIMESTER Status: Acute Current Visit: Yes (3) Tobacco use affecting in third trimester, antepartum SNOMED Code(s): 260220846, 468887888, 209221271 Code(s): O99.333 - SMOKING (TOBACCO) COMPLICATING , THIRD TRIMESTER Status: Acute Current Visit: Yes (4) Rubella non-immune status, antepartum SNOMED Code(s): 931947498 Code(s): O99.891 - OTH DISEASES AND CONDITIONS COMPLICATING ; Z28.3 - UNDERIMMUNIZATION STATUS Status: Acute Current Visit: Yes (5) Late care SNOMED Code(s): 283748773, 271802730 Code(s): O09.30 - SUPRVSN OF PREG W INSUFFICIENT ANTENAT CARE, UNSP TRIMESTER Status: Acute Current Visit: Yes (6) Chlamydia infection affecting SNOMED Code(s): 9525043569893 Code(s): O98.819 - OTH MATERNAL INFEC/PARASTC DISEASES COMP PREG, UNSP TRI; A74.9 - CHLAMYDIAL INFECTION, UNSPECIFIED Status: Acute Priority: Low Current Visit: Yes Annotation/Comment:: Tested positive, was treated, repeat testing was negative (7) Obstetric labial laceration, delivered, current hospitalization SNOMED Code(s): 041019251, 188586269, 853009267 Code(s): O70.0 - FIRST DEGREE PERINEAL LACERATION DURING DELIVERY Status: Acute Current Visit: Yes Annotation/Comment:: Bilateral, repaired - Problem List Review Problem List Initiated/Reviewed/Updated: Yes - My Orders Last 24 Hours: My Active Orders 04/06/20 01:15 Patient Status [ADT] Routine 04/06/20 01:58 Ondansetron [Zofran] 4 mg IVPUSH Q4H PRN 04/06/20 02:00 Lactated Ringers [Ringers, Lactated] 1,000 ml IV ASDIRECTED Oxytocin/Normal Saline [Pitocin in NS 30 UNIT/500 ML] 30 unit in 500 ml IV TITRATE 04/06/20 02:48 Up ad Devi [RC] ASDIRECTED Acetaminophen [TylenoL] 650 mg PO Q4H PRN Carboprost Tromethamine [Hemabate DS] 250 mcg IM ASDIRECTED PRN Lidocaine 1% [Xylocaine-MPF 1%] 30 ml INJECT ASDIRECTED PRN Methylergonovine [Methergine] 0.2 mg IM ASDIRECTED PRN Sodium Chloride 0.9% [Saline Flush] 10 ml FLUSH ASDIRECTED PRN Tranexamic Acid [Cyklokapron] 1,000 mg Sodium Chloride 0.9% [Normal Saline] 100 ml IV ONETIME miSOPROStoL [Cytotec] 800 mcg RECTAL ASDIRECTED PRN Saline Lock Insert [OM.PC] Routine 04/06/20 05:38 Notify Provider Vital Signs OB [RC] ASDIRECTED Up ad Devi [RC] ASDIRECTED Vital Signs [RC] PFP Benzocaine/Menthol [Dermoplast Pain Relief [place]] See Dose Instructions TOP Q4H PRN Docusate Sodium [Colace] 100 mg PO BID PRN Ibuprofen [Motrin] 800 mg PO Q8H PRN Oxytocin [Pitocin] 10 unit IM ONETIME PRN Simethicone 80 mg PO Q4H PRN witch Colleen [Medi-Pads] 1 each TOP Q4HR PRN Assess Lochia [WOMSER] Per Unit Routine Assess Uterine Involution [WOMSER] Per Unit Routine Breast Pump [WOMSER] Per Unit Routine Ice Therapy [OM.PC] Per Unit Routine Perineal Care [OM.PC] Per Unit Routine Sitz Bath [OM.PC] Per Unit Routine Resuscitation Status Routine 04/06/20 Breakfast Regular Diet [DIET] 04/06/20 09:00 Ferrous Sulfate 325 mg PO BID Vit with Ca/FA/Iron [ Plus Iron] 1 each PO DAILY 04/07/20 06:00 CBC W/O DIFF,HEMOGRAM [HEME] Routine RPR (SYPHILIS SERO) W/ RFLX [REF] Routine - Assessment Assessment:: 19-year-old now , status post at 40w0d - Plan Plan:: 1. Initiate routine orders 2. Plans to bottle feed 3. Will check CBC tomorrow morning. Due to already low hemoglobin, will start ferrous sulfate 325 mg BID 4. Anticipate discharge 04/08/2020 Charissa Mckeon MD
[2020-04-06] MEDS: Ibuprofen 800 MG Tab PO PRN ×2 (06:07→15:25)
[2020-04-06] MEDS: Docusate Sodium 100 MG Cap PO PRN ×2 (08:59→21:12)
[2020-04-06] MEDS: Ferrous Sulfate 325 MG Tab PO SCH ×2 (08:59→21:12)
[2020-04-06] MEDS: Prenatal Multivitamin with Calcium/Folic Acid/Iron Tab PO SCH (08:59)
[2020-04-07] MEDS ORDERED: Measles, Mumps & Rubella Vaccine 0.5 ML SDV SUBCUT ONE (08:58)
[2020-04-07] MEDS: Ferrous Sulfate 325 MG Tab PO SCH (09:14)
[2020-04-07] MEDS: Ibuprofen 800 MG Tab PO PRN (09:14)
[2020-04-07] MEDS: Docusate Sodium 100 MG Cap PO PRN (09:14)
[2020-04-07] MEDS: Prenatal Multivitamin with Calcium/Folic Acid/Iron Tab PO SCH (09:14)
[2020-04-07 09:42] VITALS: BP 123/80; PULSE 91
--- NOTE | 2020-04-07 16:46 | PCM.DCSUM1 ---
Discharge Summary - Hospital Course Free Text/Narrative:: 19-year-old now s/p at 40w0d Diagnosis: Stroke: No - Discharge Data Discharge Date: 04/07/20 Discharge Disposition: Home, Self-Care 01 Condition: Good - Referral to Home Health Primary Care Physician: Kee Mckeon MD - Discharge Diagnosis/Problem(s) (1) care in third trimester SNOMED Code(s): 532717249, 16900409, 39426685, 190600466, 771037485 ICD Code: Z34.93 - ENCNTR FOR SUPRVSN OF NORMAL PREG, UNSP, THIRD TRIMESTER Status: Acute (2) Anemia affecting in third trimester SNOMED Code(s): 18277718, 24962573 ICD Code: O99.013 - ANEMIA COMPLICATING , THIRD TRIMESTER Status: Acute (3) Tobacco use affecting in third trimester, antepartum SNOMED Code(s): 856572560, 470220486, 787262095 ICD Code: O99.333 - SMOKING (TOBACCO) COMPLICATING , THIRD TRIMESTER Status: Acute (4) Rubella non-immune status, antepartum SNOMED Code(s): 911793618 ICD Code: O99.891 - OTH DISEASES AND CONDITIONS COMPLICATING ; Z28.3 - UNDERIMMUNIZATION STATUS Status: Acute (5) Late care SNOMED Code(s): 361466418, 286517114 ICD Code: O09.30 - SUPRVSN OF PREG W INSUFFICIENT ANTENAT CARE, UNSP TRIMESTER Status: Acute (6) Chlamydia infection affecting SNOMED Code(s): 7172315853924 ICD Code: O98.819 - OTH MATERNAL INFEC/PARASTC DISEASES COMP PREG, UNSP TRI; A74.9 - CHLAMYDIAL INFECTION, UNSPECIFIED Status: Acute Priority: Low Problem Details: Tested positive, was treated, repeat testing was negative (7) Obstetric labial laceration, delivered, current hospitalization SNOMED Code(s): 350666306, 849913039, 912028268 ICD Code: O70.0 - FIRST DEGREE PERINEAL LACERATION DURING DELIVERY Status: Acute Problem Details: Bilateral, repaired - Patient Summary/Data Operative Procedure(s) Performed: None Complications: None Consults: None Labs Pending at D/C: None Recommended Follow-up Testing/Procedures: None Planned Operative Procedure(s) after DC: None Hospital Course: Please see subjective section - Patient Instructions Diet: Usual Diet as Tolerated Activity: As Tolerated, No Lifting Over 20 Pounds Driving: May Drive Today Showering/Bathing: May Shower Notify Provider of: Fever, Increased Pain, Nausea and/or Vomiting - Discharge Plan *PRESCRIPTION DRUG MONITORING PROGRAM REVIEWED*: Not Applicable *COPY OF PRESCRIPTION DRUG MONITORING REPORT IN PATIENT CAMPBELL: Not Applicable Home Medications: Home Meds Vit37/Iron/Folic Acid [Prenata] 1 tab PO DAILY 01/28/20 [History] Acetaminophen [Tylenol] 650 mg PO Q4H PRN tablet 04/07/20 [Rx] Docusate Sodium [Colace] 100 mg PO BID PRN cap 04/07/20 [Rx] Ferrous Sulfate 325 mg PO BID tablet 04/07/20 [Rx] Ibuprofen [Motrin] 800 mg PO Q8H PRN tablet 04/07/20 [Rx] Patient Handouts: Vaginal Delivery Referrals: Charissa Mckeon MD [Primary Care Provider] - (Please schedule 6 week appointment. ) - Discharge Summary/Plan Comment DC Time >30 min.: No Discharge Summary/Plan Comment: Discharge home today. Follow-up in 6-8 weeks for routine care. Routine discharge information provided. All questions were answered. - General Info Date of Service: 04/07/20 Admission Dx/Problem (Free Text: Patient Status Order with Admit Dx/Problem 04/06/20 01:15 Patient Status [ADT] Routine Admission Diagnosis/Problem Admission Diagnosis/Problem Labor established Subjective Update: Patient is doing well. Tolerating a general diet. No fever or chills. Pale but denies dizziness or lightheadedness. Ambulating without difficulty. Urinating and passing Functional Status: Reports: Pain Controlled, Tolerating Diet, Ambulating, Urinating. Denies: New Symptoms - Patient Data Vitals - Most Recent: Last Vital Signs Temp 37.3 C 04/07/20 09:41 Pulse 91 04/07/20 09:41 Resp 16 04/07/20 09:41 BP 123/80 04/07/20 09:41 Pulse Ox 98 04/07/20 09:41 Weight - Most Recent: 92.986 kg Lab Results - Last 24 hrs: Laboratory Results - last 24 hr 04/07/20 Range/Units 05:24 WBC 11.0 H (5.0-10.0) 10^3/uL RBC 3.52 L (4.2-5.4) 10^6/uL Hgb 7.1 L D (12.0-16.0) g/dL Hct 25.0 L (37.0-47.0) % MCV 71.0 L (80-100) fL MCH 20.2 L (27.0-34.0) pg MCHC 28.4 L (33.0-35.0) g/dL Plt Count 293 (150-450) 10^3/uL Med Orders - Current: Current Medications Discontinued Medications Acetaminophen (Tylenol) 650 mg PO Q4H PRN PRN Reason: Pain (Mild 1-3) and fever Benzocaine/Menthol (Dermoplast Pain Relief Bates) 0 gm TOP Q4H PRN PRN Reason: Perineal comfort measures Last Admin: 04/06/20 06:16 Dose: 1 spray Documented by: Carboprost Tromethamine (Hemabate Ds) Confirm Administered Dose 250 mcg .ROUTE .STK-MED ONE Stop: 04/06/20 02:20 Last Admin: 04/06/20 02:55 Dose: Not Given Documented by: Carboprost Tromethamine (Hemabate Ds) 250 mcg IM ASDIRECTED PRN PRN Reason: HEMORRHAGE Docusate Sodium (Colace) 100 mg PO BID PRN PRN Reason: Constipation Last Admin: 04/07/20 09:14 Dose: 100 mg Documented by: Epinephrine HCl (Adrenalin) Confirm Administered Dose 1 mg .ROUTE .STK-MED ONE Stop: 04/06/20 02:03 Last Admin: 04/06/20 02:54 Dose: Not Given Documented by: Epinephrine HCl (Adrenalin) 0.1 mg .XX .STK-MED ONE Stop: 04/06/20 02:03 Fentanyl (Sublimaze) Confirm Administered Dose 100 mcg .ROUTE .STK-MED ONE Stop: 04/06/20 02:02 Last Admin: 04/06/20 02:54 Dose: Not Given Documented by: Fentanyl (Sublimaze) 30 mcg ITHECAL .STK-MED ONE Stop: 04/06/20 02:03 Ferrous Sulfate (Ferrous Sulfate) 325 mg PO BID NOMI Last Admin: 04/07/20 09:14 Dose: 325 mg Documented by: Lactated Ringer's (Ringers, Lactated) 1,000 mls @ 125 mls/hr IV ASDIRECTED NOMI Last Admin: 04/06/20 04:13 Dose: 125 mls/hr Documented by: Oxytocin/Sodium Chloride (Pitocin In Ns 30 Unit/500 Ml) 30 unit in 500 mls @ 2 mls/hr IV TITRATE NOMI; Protocol Last Titration: 04/06/20 09:00 Dose: 0 munits/min, 0 mls/hr Documented by: Tranexamic Acid 1,000 mg/ (Sodium Chloride) 110 mls @ 660 mls/hr IV ONETIME PRN PRN Reason: Bleeding Ibuprofen (Motrin) 800 mg PO Q8H PRN PRN Reason: Mild Pain or Fever Last Admin: 04/07/20 09:14 Dose: 800 mg Documented by: Lidocaine HCl (Xylocaine-Mpf 1%) 30 ml INJECT ASDIRECTED PRN PRN Reason: Perineal Repair Last Admin: 04/06/20 05:10 Dose: 30 ml Documented by: Measles/Mumps/Rubella Vaccine Live (M-M-R Ii Vaccine) 0.5 ml SUBCUT .ONCE ONE Stop: 04/07/20 08:59 Last Admin: 04/07/20 09:14 Dose: 0.5 ml Documented by: Methylergonovine Maleate (Methergine) Confirm Administered Dose 0.2 mg .ROUTE .STK-MED ONE Stop: 04/06/20 02:20 Last Admin: 04/06/20 02:55 Dose: Not Given Documented by: Methylergonovine Maleate (Methergine) 0.2 mg IM ASDIRECTED PRN PRN Reason: Hemorrhage Misoprostol (Cytotec) Confirm Administered Dose 800 mcg .ROUTE .STK-MED ONE Stop: 04/06/20 02:20 Last Admin: 04/06/20 02:55 Dose: Not Given Documented by: Misoprostol (Cytotec) 800 mcg RECTAL ASDIRECTED PRN PRN Reason: Hemorrhage Ondansetron HCl (Zofran) 4 mg IVPUSH Q4H PRN PRN Reason: Nausea/Vomiting Last Admin: 04/06/20 02:05 Dose: 4 mg Documented by: Oxytocin (Pitocin) 10 unit IM ONETIME PRN PRN Reason: Bleeding Prenat Multivit/Ashe/Iron/Folic Ac ( Plus Iron) 1 each PO DAILY NOMI Last Admin: 04/07/20 09:14 Dose: 1 each Documented by: Simethicone (Simethicone) 80 mg PO Q4H PRN PRN Reason: Gas Sodium Chloride (Saline Flush) 10 ml FLUSH ASDIRECTED PRN PRN Reason: Keep Vein Open Sufentanil Citrate (Sufenta) Confirm Administered Dose 50 mcg .ROUTE .STK-MED ONE Stop: 04/06/20 02:03 Last Admin: 04/06/20 02:54 Dose: Not Given Documented by: Sufentanil Citrate (Sufenta) 25 mcg ITHECAL .STK-MED ONE Stop: 04/06/20 02:03 David Macias (Medi-Pads) 1 each TOP Q4HR PRN PRN Reason: Perineal Comfort Measure
== END 2020-04-07 11:06 | disposition home or self-care (01) | DRG 560 ==
LOC: DL.OBCHECK 01:49 → DL.OB 02:06 → OBSVTOIN 05:05
PROVIDERS: ADMIT Family Medicine; ATTEND Family Medicine
PROC: 10E0XZZ Delivery of Products of Conception, External Approach (ICD-10-PCS; principal; 2020-04-06)
PROC: 0HQ9XZZ Repair Perineum Skin, External Approach (ICD-10-PCS; 2020-04-06)
DX: O48.0 Post-term pregnancy (principal); Z3A.40 40 weeks gestation of pregnancy; Z37.0 Single live birth; O70.0 First degree perineal laceration during delivery; O98.82 Other maternal infectious and parasitic diseases complicating childbirth; O99.02 Anemia complicating childbirth; D64.9 Anemia, unspecified; O99.334 Smoking (tobacco) complicating childbirth; Z20.828 Contact with and (suspected) exposure to other viral communicable diseases
CPT/HCPCS: 01967; 36415; 59409; 85027; 86592; 86850; 86900; 86901; 90471; 90707; A9270-GY; J0171; J2001; J2405; J2590; J3010; J7120; U0002

== ENCOUNTER 2020-11-27 04:15 | Emergency (ER) | payer BC, MEDICAID ==
[2020-11-27 04:25] VITALS: BP 147/96; PULSE 119
[2020-11-27] MEDS ORDERED: Acetaminophen 500 MG Tab PO ONE (04:53)
--- NOTE | 2020-11-27 04:53 | EDM.PDOC ---
ED HPI GENERAL MEDICAL PROBLEM - General Chief Complaint: Lower Extremity Injury/Pain Stated Complaint: INJURED RIGHT ANKLE Time Seen by Provider: 11/27/20 04:40 Source of Information: Reports: Patient, RN, RN Notes Reviewed History Limitations: Reports: No Limitations - History of Present Illness INITIAL COMMENTS - FREE TEXT/NARRATIVE: Kusum is a 19 y/o female who presents to the ED via personal vehicle with complaints of left ankle pain. The patient reports she injured her ankle while speed walking in sandals four days ago; she notes her ankle inwardly rotated. She states the pain, swelling, and ecchymosis have progressively worsened since the injury to the point that ambulation is difficult. She denies history of injury or trauma to the affected extremity. She has taken multiple doses of ibuprofen and acetaminophen which offer her [id number] alleviation of pain. 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: Psychiatric History: Reports: Depression, Other (See Below) Other Psychiatric History: history of cutting- noted cuts on bilateral arms Hematologic History: Reports: Anemia, Other (See Below) Other Hematologic History: requiring blood transfusion - Past Surgical History HEENT Surgical History: Reports: None Social & Family History - Family History Family Medical History: No Pertinent Family History - Tobacco Use Tobacco Use Status *Q: Never Tobacco User Second Hand Smoke Exposure: No - Caffeine Use Caffeine Use: Reports: Coffee - Recreational Drug Use Recreational Drug Use: No - Living Situation & Occupation Living situation: Reports: with Significant Other Review of Systems - Review of Systems Review Of Systems: Comprehensive ROS is negative, except as noted in HPI. ED EXAM, GENERAL - Physical Exam Exam: See Below Exam Limited By: No Limitations General Appearance: Alert, No Apparent Distress Eye Exam: Bilateral Eye: EOMI, Normal Inspection, PERRL (3mm) Throat/Mouth: Normal Inspection, Normal Oropharynx, Normal Voice, No Airway Compromise Head: Atraumatic, Normocephalic Neck: Normal Inspection, Supple, Non-Tender, Full Range of Motion Respiratory/Chest: No Respiratory Distress, Lungs Clear, Normal Breath Sounds, No Accessory Muscle Use, Chest Non-Tender Cardiovascular: Normal Peripheral Pulses, Regular Rate, Rhythm, No Edema, No Gallop, No JVD, No Murmur, No Rub Peripheral Pulses: 1+: Posterior Tibial (L), Posterior Tibial (R), 2+: Radial (L), Radial (R), Dorsalis Pedis (L), Dorsalis Pedis (R) GI/Abdominal: Normal Bowel Sounds, Soft, Non-Tender, No Distention, No Abnormal Bruit, No Mass, Pelvis Stable Back Exam: Normal Inspection, Full Range of Motion Extremities: Normal Capillary Refill, Joint Swelling (Right lateral ankle), Leg Pain (To right ankle), Limited Range of Motion (Pain with dorsiflexion and plan tar flexion), Increased Warmth (To right ankle with bruising noted). No: Mottled, Pallor, Redness Neurological: Alert, Oriented, CN II-XII Intact, Normal Cognition, Normal Re flexes, No Motor/Sensory Deficits, Abnormal Gait (Right limping gait). No: Normal Gait Psychiatric: Normal Affect, Normal Mood Skin Exam: Warm, Dry, Intact, No Rash, Ecchymosis (To right inferior lateral ankle), Increased Warmth (To right lateral ankle). No: Erythema, Mottled, Pallor, Petechiae Course - Vital Signs Last Recorded V/S: Last Vital Signs Temp 99.5 F 11/27/20 04:19 Pulse 119 H 11/27/20 04:19 Resp 18 11/27/20 04:19 BP 147/96 H 11/27/20 04:19 Pulse Ox 99 11/27/20 04:19 - Orders/Labs/Meds Meds: Medications Discontinued Medications Generic Name Dose Route Start Last Admin Trade Name Freq PRN Reason Stop Dose Admin Acetaminophen 1,000 mg 11/27/20 04:53 11/27/20 05:05 Acetaminophen 500 Mg Tab PO 11/27/20 04:54 1,000 mg ONETIME ONE Administration - Radiology Interpretation Free Text/Narrative:: [facility] [place] [facility] Final Radiology Report Call: [phone] assistance Online chat: [email or web address] Name: KUSUM TSAI Age: 19Years F Date: 11/27/2020 SSN: -- : 2000 Study: CR ANKLE MIN 3V RT Requesting Physician: eJnnifer Navas Images: 3 Addl Studies: Provided Clinical History: rolled ankle 4 days ago Contrast: Contrast Medium: Contrast Amount: Contrast Method: CONFIDENTIALITY STATEMENT This report is intended only for use by the referring physician, and only in accordance with law. If you received this in error, call [phone]. Page 1 of 1 PROCEDURE INFORMATION: Exam: XR Right Ankle Exam date and time: 11/27/2020 5:08 AM Age: 19 years old Clinical indication: Pain; Ankle; Right; Additional info: Rolled ankle 4 days ago TECHNIQUE: Imaging protocol: XR Right ankle. Views: 3 or more views. COMPARISON: No relevant prior studies available. FINDINGS: Bones/joints: Normal. Soft tissues: Soft tissue swelling but no acute fracture or dislocation. IMPRESSION: Soft tissue swelling but no acute fracture or dislocation. Thank you for allowing us to participate in the care of your patient. Dictated and Authenticated by: Abdullahi Mane MD 11/27/2020 6:11 AM Central Time ([place] & Sea) - Re-Assessments/Exams Free Text/Narrative Re-Assessment/Exam: 11/28/20 Patient verbalized improvement in symptoms following medication administration. Findings of examination and imaging reviewed with patient. Discussed supportive cares for ankle sprain with patient. Red flag signs and symptoms which would warrant reevaluation reviewed. Patient verbalized understanding and agreement with the plan of care. Departure - Departure Time of Disposition: 06:38 Disposition: Home, Self-Care 01 Condition: Good Clinical Impression: Right ankle sprain Qualifiers: Encounter type: initial encounter Involved ligament of ankle: unspecified ligament Qualified Code(s): S93.401A - Sprain of unspecified ligament of right ankle, initial encounter - Discharge Information *PRESCRIPTION DRUG MONITORING PROGRAM REVIEWED*: Not Applicable *COPY OF PRESCRIPTION DRUG MONITORING REPORT IN PATIENT CAMPBELL: Not Applicable Instructions: Ankle Sprain, [id number] Referrals: Charissa Mckeon MD [Primary Care Provider] - Forms: ED Department Discharge Additional Instructions: 1.) You may take ibuprofen (Advil/Motrin) 400mg every six hours, as pain and swelling persists. You may also take acetaminophen (Tylenol) 650mg every six hours, as pain persists. You may stagger these medications so you are receiving a dose every three hours. 2.) You may apply ice to the affected area, as pain and swelling persist. 3.) Follow up with your primary care provider in 5-7 should symptoms persist, or sooner should they worsen. Sepsis Event Note (ED) - Evaluation Sepsis Screening Result: No Definite Risk
--- NOTE | 2020-11-27 06:11 | CR ---
PROCEDURE INFORMATION: Exam: XR Right Ankle Exam date and time: 11/27/2020 5:08 AM Age: 19 years old Clinical indication: Pain; Ankle; Right; Additional info: Rolled ankle 4 days ago TECHNIQUE: Imaging protocol: XR Right ankle. Views: 3 or more views. COMPARISON: No relevant prior studies available. FINDINGS: Bones/joints: Normal. Soft tissues: Soft tissue swelling but no acute fracture or dislocation. IMPRESSION: Soft tissue swelling but no acute fracture or dislocation.
== END 2020-11-27 06:45 | disposition home or self-care (01) ==
LOC: DL.ED 04:15
DX: S93.401A Sprain of unspecified ligament of right ankle, initial encounter (principal); Z88.0 Allergy status to penicillin; X50.1XXA Overexertion from prolonged static or awkward postures, initial encounter
CPT/HCPCS: 73610; 99283; A9270; 99282

== ENCOUNTER 2020-11-30 10:25 | Inpatient (IN) | payer MEDICAID ==
--- NOTE | 2020-11-30 10:42 | EDM.PDOC ---
ED HPI GENERAL MEDICAL PROBLEM - General Chief Complaint: Skin Complaint Stated Complaint: INFECTED FOOT Time Seen by Provider: 11/30/20 10:37 Source of Information: Reports: Patient, Old Records, Provider (Simran Montoya NP), RN, RN Notes Reviewed History Limitations: Reports: No Limitations - History of Present Illness INITIAL COMMENTS - FREE TEXT/NARRATIVE: Pt sent from [facility] by Simran Montoya NP for evaluation and treatment of right lower leg cellulitis. Pt states she twisted and sprained her right ankle on 11/23/20. She was seen here in the ER on 11/27/20, had a negative ankle x-ray and diagnosed with ankle sprain. Over the past couple of days she reports development of a friction type sore on the top of her right foot, followed by redness, pain, and increased warmth that has spread up to the right knee. Admits to feverish feeling, but has not measured temperature. In clinic today was found to have WBC of 14.1. The clinic practitioner called the spitalist for direct admission, but was advised to send the pt to the ER. Onset: Gradual Duration: Constant, Getting Worse Location: Reports: Lower Extremity, Right Quality: Reports: Burning Severity: Moderate Improves with: Reports: None Worsens with: Reports: None Associated Symptoms: Reports: No Other Symptoms Right Foot Pain Score (Numeric/FACES): 10 - Related Data Allergies Allergy/AdvReac Type Severity Reaction Status Date / Time Penicillins Allergy Cannot Verified 11/27/20 04:25 Remember Home Meds: Home Meds . 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: Psychiatric History: Reports: Depression, Other (See Below) Other Psychiatric History: history of cutting- noted cuts on bilateral arms Hematologic History: Reports: Anemia, Other (See Below) Other Hematologic History: requiring blood transfusion - Past Surgical History HEENT Surgical History: Reports: None Social & Family History - Family History Family Medical History: No Pertinent Family History - Caffeine Use Caffeine Use: Reports: Coffee - Living Situation & Occupation Living situation: Reports: with Significant Other Review of Systems - Review of Systems Review Of Systems: Comprehensive ROS is negative, except as noted in HPI. ED EXAM, GENERAL - Physical Exam Exam: See Below Exam Limited By: No Limitations General Appearance: Alert, WD/WN, No Apparent Distress, Obese Nose: Normal Inspection Throat/Mouth: Normal Inspection, Normal Lips, Normal Voice, No Airway Compromise Head: Atraumatic, Normocephalic Neck: Normal Inspection, Supple, Non-Tender, Full Range of Motion Respiratory/Chest: No Respiratory Distress, Lungs Clear, Normal Breath Sounds, No Accessory Muscle Use, Chest Non-Tender Cardiovascular: Normal Peripheral Pulses, Regular Rate, Rhythm, No Edema, Tachycardia GI/Abdominal: Normal Bowel Sounds, Soft, Non-Tender Back Exam: Normal Inspection Extremities: Normal Range of Motion, No Pedal Edema, Normal Capillary Refill, Leg Pain (Rt foot to knee, abrasion to dorsal foot, erythema, increased warmth, and tenderness to knee) Neurological: Alert, Oriented, Normal Cognition, No Motor/Sensory Deficits Psychiatric: Normal Affect, Normal Mood Course - Vital Signs Last Recorded V/S: Last Vital Signs Temp 98.5 F 11/30/20 10:47 Pulse 100 11/30/20 10:47 Resp 18 11/30/20 10:47 BP 134/67 11/30/20 10:47 Pulse Ox 100 11/30/20 10:47 - Orders/Labs/Meds Orders: Active Orders 24 hr Category Date Time Status Peripheral IV Care [RC] . DIRECTED Care 11/30/20 10:48 Active C-REACTIVE PROTEIN [CHEM] Stat Lab 11/30/20 10:57 Received COMPREHENSIVE METABOLIC PN,CMP [CHEM] Stat Lab 11/30/20 10:57 Received CULTURE BLOOD [BC] Stat Lab 11/30/20 10:57 Received CULTURE BLOOD [BC] Stat Lab 11/30/20 11:04 Received HCG QUALITATIVE,SERUM [CHEM] Stat Lab 11/30/20 10:57 Received LACTATE SEPSIS W/ REFLEX [CHEM] Stat Lab 11/30/20 10:57 Received Sodium Chloride 0.9% [Normal Saline] 1,000 ml Med 11/30/20 10:49 Active IV .BOLUS Sodium Chloride 0.9% [Saline Flush] Med 11/30/20 10:48 Active 10 ml FLUSH ASDIRECTED PRN Vancomycin 1,500 mg Med 11/30/20 10:50 Active Sodium Chloride 0.9% [Normal Saline] 500 ml IV ONETIME Blood Culture x2 Reflex Set [OM.PC] Stat Oth 11/30/20 10:46 Ordered Peripheral IV Insertion Adult [OM.PC] Stat Oth 11/30/20 10:48 Ordered Medication Orders Sodium Chloride (Normal Saline) 1,000 mls @ 999 mls/hr IV .BOLUS ONE Stop: 11/30/20 11:49 Vancomycin HCl 1,500 mg/ (Sodium Chloride) 500 mls @ 333.333 mls/hr IV ONETIME ONE Stop: 11/30/20 12:19 Sodium Chloride (Sodium Chloride 0.9% 10 Ml Syringe) 10 ml FLUSH ASDIRECTED PRN PRN Reason: Keep Vein Open Last Admin: 11/30/20 11:02 Dose: 10 ml Documented by: TRISHA Labs: Laboratory Tests 11/30/20 Range/Units 10:57 WBC 13.9 H (5.0-10.0) 10^3/uL RBC 5.01 (4.2-5.4) 10^6/uL Hgb 10.8 L D (12.0-16.0) g/dL Hct 35.0 L (37.0-47.0) % MCV 69.9 L (80-100) fL MCH 21.6 L (27.0-34.0) pg MCHC 30.9 L (33.0-35.0) g/dL Plt Count 382 D (150-450) 10^3/uL Neut % (Auto) 78.2 H (42.2-75.2) % Lymph % (Auto) 13.1 L (20.5-50.1) % Alfalfa % (Auto) 8.0 (2-8) % Eos % (Auto) 0.6 L (1.0-3.0) % Baso % (Auto) 0.1 (0.0-1.0) % Meds: Medications Generic Name Dose Route Start Last Admin Trade Name Freq PRN Reason Stop Dose Admin Sodium Chloride 1,000 mls @ 999 mls/hr 11/30/20 10:49 Normal Saline IV 11/30/20 11:49 .BOLUS ONE Vancomycin HCl 1,500 mg/ 500 mls @ 333.333 mls/hr 11/30/20 10:50 Sodium Chloride IV 11/30/20 12:19 ONETIME ONE Sodium Chloride 10 ml 11/30/20 10:48 11/30/20 11:02 Sodium Chloride 0.9% 10 Ml Syringe FLUSH 10 ml ASDIRECTED PRN Administration Keep Vein Open Discontinued Medications Generic Name Dose Route Start Last Admin Trade Name Freq PRN Reason Stop Dose Admin Diphenhydramine HCl 25 mg 11/30/20 10:49 Diphenhydramine 50 Mg/Ml Sdv IVPUSH 11/30/20 10:50 ONETIME ONE Ketorolac Tromethamine 30 mg 11/30/20 10:50 Ketorolac 30 Mg/Ml Sdv IVPUSH 11/30/20 10:51 ONETIME ONE Ondansetron HCl 4 mg 11/30/20 10:49 Ondansetron 4 Mg/2 Ml Sdv IV 11/30/20 10:50 ONETIME ONE Departure - Departure Time of Disposition: 11:17 (admitted to Dr. Silvestre) Disposition: Admitted As Inpatient 65 Condition: Fair Clinical Impression: Cellulitis of right lower extremity - Discharge Information *PRESCRIPTION DRUG MONITORING PROGRAM REVIEWED*: Not Applicable *COPY OF PRESCRIPTION DRUG MONITORING REPORT IN PATIENT CAMPBELL: Not Applicable Forms: ED Department Discharge Sepsis Event Note (ED) - Focused Exam Vital Signs: Vital Signs Temp Pulse Resp BP Pulse Ox 11/30/20 10:47 98.5 F 100 18 134/67 100 - My Orders Last 24 Hours: My Active Orders 11/30/20 10:46 Blood Culture x2 Reflex Set [OM.PC] Stat 11/30/20 10:48 Peripheral IV Care [RC] . DIRECTED Sodium Chloride 0.9% [Saline Flush] 10 ml FLUSH ASDIRECTED PRN Peripheral IV Insertion Adult [OM.PC] Stat 11/30/20 10:49 Sodium Chloride 0.9% [Normal Saline] 1,000 ml IV .BOLUS 11/30/20 10:50 Vancomycin 1,500 mg Sodium Chloride 0.9% [Normal Saline] 500 ml IV ONETIME 11/30/20 10:57 C-REACTIVE PROTEIN [CHEM] Stat COMPREHENSIVE METABOLIC PN,CMP [CHEM] Stat CULTURE BLOOD [BC] Stat HCG QUALITATIVE,SERUM [CHEM] Stat LACTATE SEPSIS W/ REFLEX [CHEM] Stat 11/30/20 11:04 CULTURE BLOOD [BC] Stat - Assessment/Plan Last 24 Hours: My Active Orders 11/30/20 10:46 Blood Culture x2 Reflex Set [OM.PC] Stat 11/30/20 10:48 Peripheral IV Care [RC] . DIRECTED Sodium Chloride 0.9% [Saline Flush] 10 ml FLUSH ASDIRECTED PRN Peripheral IV Insertion Adult [OM.PC] Stat 11/30/20 10:49 Sodium Chloride 0.9% [Normal Saline] 1,000 ml IV .BOLUS 11/30/20 10:50 Vancomycin 1,500 mg Sodium Chloride 0.9% [Normal Saline] 500 ml IV ONETIME 11/30/20 10:57 C-REACTIVE PROTEIN [CHEM] Stat COMPREHENSIVE METABOLIC PN,CMP [CHEM] Stat CULTURE BLOOD [BC] Stat HCG QUALITATIVE,SERUM [CHEM] Stat LACTATE SEPSIS W/ REFLEX [CHEM] Stat 11/30/20 11:04 CULTURE BLOOD [BC] Stat
[2020-11-30] MEDS ORDERED: Sodium Chloride 0.9% 10 ML Syringe FLUSH PRN ×2 (10:48→13:10)
[2020-11-30] MEDS ORDERED: diphenhydrAMINE 50 MG/ML SDV IVPUSH ONE (10:49)
[2020-11-30] MEDS ORDERED: Ondansetron 4 MG/2 ML SDV IV ONE (10:49)
[2020-11-30] MEDS ORDERED: Sodium Chloride 0.9% 1,000 ML IV ONE (10:49)
[2020-11-30] MEDS ORDERED: Ketorolac 30 MG/ML SDV IVPUSH ONE (10:50)
[2020-11-30 11:29] LABS: ANION GAP 13.1 mEq/L (7-13); CHLORIDE,CL 97 mmol/L (98-107); SODIUM,NA 133 mmol/L (136-145)
--- NOTE | 2020-11-30 12:00 | PCM.SN.2 ---
- Free Text/Narrative Note: START OF DOCTOR ALETHEA HISTORY AND PHYSICAL / CONSULTATION NOTE Chief Complaint: Right lower extremity pain History of Present Illness: The patient is 1-year-old female who presents for treatment of right leg pain. She states pain is approximately 72 hours prior to mention. She states that the time she sprained her ankle while twisting it while walking on steps. Since that time she has developed purpura as well as erythema as well as edema. She currently rates her right leg pain is a 10 out of 10 although her outward appearance does not come close to matching the subjective rating of pain. She describes the pain as a pressure she states that she is taking it ibuprofen Advil home which has not improved the pain. She admits to onset of fever, rigors, nausea, vomiting. She denies any other complaints. She denies paresthesia/anesthesia of her right lower extremity. She presents for further evaluation Surgical History: Never Family History: Diabetes, coronary disease, hypertension Social History: Tobacco: Former smoker Alcohol: Denies Caffeine: Coffee, tea, cola Drugs: Past marijuana use. Denies any other drug use past present Allergies: Penicillin Code Status: Full Pertinent Laboratory Results / Pertinent Radiology Results / Pertinent Diagnostic Results / Pertinent Vital Signs: Blood pressure 134/67. pulse 100, respirations 18, temperature 98.5 degrees, 100% room air, white blood count 13.9, hemoglobin 10.8, MCV 69.9 Physical Examination: General: -Alert -No acute distress -No dyspnea -No tachypnea -Obese Head: -Atraumatic -Normocephalic Eyes: -Pupils equally round and reactive to light and accommodation -Extraocular muscles intact Neurological: -Cranial nerves II-XII intact Neck: -No jugular venous distention -No thyromegaly -No cervical lymphadenopathy Heart: -Regular rate -Regular rhythm -No murmurs -No gallops -No rubs Lungs: -No wheeze -No rhonchi -No rales Abdomen: -Normal bowel sounds in all four quadrants -No rebound -No guarding -No tenderness Extremities: -2/4 pulse in all four extremities -No clubbing -No cyanosis -Right lower extremity edema present -No calf tenderness present bilaterally -Negative Homans sign bilaterally Musculoskeletal: -5/5 bilateral upper extremity strength -5/5 left lower extremity plantar dorsiflexion strength. Restriction of range of motion of right lower extremity due to edema/pain -Sensorium of bilateral upper extremities are equal and intact -Sensorium of bilateral lower extremities are equal and intact Additional Details / Additional Findings / Exceptions / Miscellaneous: There is purpura from the ankle to the proximal third of the right leg with splotches of erythema. Assessment / Plan: Right lower extremity edema. Query cellulitis, however ruptured Achilles tendon cannot be excluded given the degree of purpura, and right lower extremity DVT must be excluded as well. Vasculitis is in the differential diagnosis as well. Vancomycin IV to be dosed by pharmacy plus Rocephin 1 g IV daily. Demarcate and date the margin of erythema daily. Right lower extremity ultrasound pending. Until DVT is ruled out, Lovenox 100 mg subcutaneously every 12 hours. Check HIV and hepatitis panel. If there is no improvement in the purpura/erythema within 40 hours, I will check right lower extremity MRI to rule out Achilles tendon rupture History of self-mutilation Depression Query history of hepatitis C. Hepatitis panel pending Microcytic anemia. Will monitor hemoglobin levels intermittently. Check serum ferritin, iron panel, fecal occult blood Obesity. Patient counseled regarding lifestyle modification DVT prophylaxis. Lovenox 100 mg subcutaneously every 12 hours Disposition: Anticipate discharge in 72 to 96 hours END OF DOCTOR EMAMIS HISTORY AND PHYSICAL / CONSULTATION NOTE
[2020-11-30] MEDS ORDERED: Enoxaparin 100 MG/1 ML Syringe SUBCUT SCH (12:15)
[2020-11-30] MEDS: cefTRIAXone 1 GM in Sodium Chloride 0.9% 50 ML IV SCH (13:18)
[2020-11-30] MEDS: Iron Sucrose Complex 100 MG in Sodium Chloride 0.9% 100 ML IV SCH (14:05)
[2020-11-30] MEDS: Potassium Chloride 10 MEQ Tab.ER PO SCH ×2 (14:08→16:48)
[2020-11-30] MEDS: Ascorbic Acid 500 MG Tab PO SCH (14:08)
[2020-11-30] MEDS: Sodium Chloride 0.9% 1,000 ML IV SCH (14:21)
--- NOTE | 2020-11-30 16:32 | US ---
EXAMINATION: Venous Doppler Lwr Ext Rt SEX: Female AGE: 19 years CLINICAL HISTORY: 19-year-old female with right lower extremity tenderness and swelling (edema). Rule out DVT. Interpretation: Negative exam. No sign of intraluminal echogenic thrombus and there is normal compression of the deep veins right calf, knee and thigh. Satisfactory augmentation and venous waveforms demonstrated respectively in the posterior tibial veins of the right calf, popliteal vein behind the right knee, and possibly in the superficial/common femoral veins of the right thigh and groin. No popliteal or Ramos's cyst. No subcutaneous hematoma.
[2020-11-30] MEDS: Ondansetron 4 MG/2 ML SDV IVPUSH PRN ×2 (16:47→23:39)
[2020-11-30] MEDS: Acetaminophen 325 MG Tab PO PRN (18:42)
[2020-12-01] MEDS: Acetaminophen 325 MG Tab PO PRN ×4 (02:16→17:36)
[2020-12-01] MEDS: Sodium Chloride 0.9% 1,000 ML IV SCH ×2 (03:58→17:30)
[2020-12-01 07:01] LABS: ANION GAP 14.9 mEq/L (7-13)
--- NOTE | 2020-12-01 07:44 | PCM.SN.2 ---
- Free Text/Narrative Note: START OF DOCTOR ALETHEA PROGRESS NOTE Subjective: The patient Franky that she is still having pain of her right leg. She indicates it is unchanged from November 30, 2020. She denies anesthesia/paresthesia of the right lower extremity. Overnight she denies fever, rigors, nausea, vomiting, cough, wheeze, abdominal pain, chest pain, dyspnea. I explained the patient her current medical condition and plan of care and have answered all of her questions Objective: General: -Alert -No acute distress -No dyspnea -No tachypnea -Morbidly obese Heart: -Regular rate -Regular rhythm -No murmurs -No gallops -No rubs Lungs: -No wheeze -No rhonchi -No rales Abdomen: -Normal bowel sounds in all four quadrants -No rebound -No guarding -No tenderness Extremities: -2/4 pulse in all four extremities -No clubbing -No cyanosis -Right lower extremity is edematous Additional Details / Additional Findings / Exceptions / Miscellaneous: Compared with my examination on November 30, 2020, the margin of erythema has surpassed the line of demarcation and is now more proximal on her right leg. Right lower extremity demonstrates purpura and erythema. Sensorium of right lower extremity is the same as the left lower extremity. Patient has 5 out of 5 bilateral plantar and dorsiflexion strength Pertinent Laboratory Results / Pertinent Radiology Results / Pertinent Diagnostic Results / Pertinent Vital Signs: Vital signs stable. Platelets count 11.6, hemoglobin 9, MCV 70.9, creatinine 1.54, AST 58, ALT 66, alkaline phosphatase 139 Assessment / Plan: Right lower extremity edema. Query cellulitis, however ruptured Achilles tendon cannot be excluded given the degree of purpura. Vasculitis is in the differential diagnosis as well. Vancomycin IV to be dosed by pharmacy plus Rocephin 1 g IV daily. Demarcate and date the margin of erythema daily. Right lower extremity ultrasound negative. HIV negative. hepatitis panel pending. MRI of right leg pending Hyponatremia. Will monitor sodium levels intermittently. IV normal saline 75 mils per hour Hypokalemia. Will monitor potassium levels intermittently and supplement as necessary Hyperproteinemia. SPEP pending. UPEP pending. Acute renal insufficiency. Will monitor creatinine intermittently. IV normal saline 75 mL's per hour History of self-mutilation Depression Query history of hepatitis C. Hepatitis panel pending Iron deficiency anemia. Will monitor hemoglobin levels intermittently. Fecal occult blood pending. Vitamin C 500 mg p.o. daily plus iron sucrose 100 mg IV daily Obesity. Patient counseled regarding lifestyle modification DVT prophylaxis. Bilateral DENNIS navarrete Disposition: Anticipate discharge in 96 to 120 hours END OF DOCTOR EMAMIS PROGRESS NOTE
[2020-12-01] MEDS: Ascorbic Acid 500 MG Tab PO SCH (08:25)
[2020-12-01] MEDS ORDERED: Enoxaparin 40 MG/0.4 ML Syringe SUBCUT SCH (09:00)
[2020-12-01] MEDS: cefTRIAXone 1 GM in Sodium Chloride 0.9% 50 ML IV SCH (13:19)
[2020-12-01] MEDS: Iron Sucrose Complex 100 MG in Sodium Chloride 0.9% 100 ML IV SCH (14:55)
[2020-12-01] MEDS ORDERED: Water For Injection, Sterile 20 ML ONE (23:39)
[2020-12-02] MEDS: Sodium Chloride 0.9% 1,000 ML IV SCH ×3 (02:03→20:53)
[2020-12-02 06:52] LABS: ANION GAP 13.9 mEq/L (7-13)
--- NOTE | 2020-12-02 07:36 | PCM.SN.2 ---
- Free Text/Narrative Note: START OF DOCTOR EMAMIS PROGRESS NOTE Subjective: The patient indicates the pain and the edema of her right lower extremity are unchanged from my encounter with resume 2020. Overnight denies fever, rigors, nausea, vomiting, cough, wheeze, abdominal pain, chest pain, dyspnea, or any other constitutional complaints. The patient indicates she is urinating frequently. I explained to the patient her current medical condition and plan of care and I have answered all of her questions Objective: General: -Alert -No acute distress -No dyspnea -No tachypnea -Morbidly obese Heart: -Regular rate -Regular rhythm -No murmurs -No gallops -No rubs Lungs: -No wheeze -No rhonchi -No rales Abdomen: -Normal bowel sounds in all four quadrants -No rebound -No guarding -No tenderness Extremities: -2/4 pulse in all four extremities -No clubbing -No cyanosis -Right lower extremity is edematous Additional Details / Additional Findings / Exceptions / Miscellaneous: Compared with my examination on December 01, 2020, the erythema has receded from the line of demarcation. Edema appears to be unchanged. Right lower extremity appears to be less erythematous. Sensorium of right lower extremity is intact/equivalent to left lower extremity Pertinent Laboratory Results / Pertinent Radiology Results / Pertinent Diagn ostic Results / Pertinent Vital Signs: Heart rate 105 bpm, white blood count 13.4, hemoglobin 9.1, creatinine 1.33, AST 47, ALT 64 Assessment / Plan: Right lower extremity edema. Query cellulitis, however ruptured Achilles tendon cannot be excluded given the degree of purpura. Vasculitis is in the differential diagnosis as well. Vancomycin IV to be dosed by pharmacy plus Rocephin 1 g IV daily. Demarcate and date the margin of erythema daily. Right lower extremity ultrasound negative. HIV negative. hepatitis panel pending. MRI of right leg pending Hyponatremia. Will monitor sodium levels intermittently. IV normal saline 150 mils per hour Hypokalemia. Will monitor potassium levels intermittently and supplement as necessary Hyperproteinemia. SPEP pending. UPEP pending. Acute renal insufficiency. Will monitor creatinine intermittently. IV normal saline 150 mL's per hour History of self-mutilation Depression Query history of hepatitis C. Hepatitis panel pending Iron deficiency anemia. Will monitor hemoglobin levels intermittently. Fecal occult blood pending. Vitamin C 500 mg p.o. daily plus iron sucrose 100 mg IV daily Obesity. Patient counseled regarding lifestyle modification DVT prophylaxis. Bilateral DENNIS hose Disposition: Anticipate discharge in 48-72 hours END OF DOCTOR EMAMIS PROGRESS NOTE
[2020-12-02] MEDS: Acetaminophen 325 MG Tab PO PRN ×3 (07:46→20:55)
--- NOTE | 2020-12-02 09:06 | MR ---
PROCEDURE INFORMATION: Exam: MR Right Lower Extremity Joint Without Contrast; Ankle Exam date and time: 12/02/2020 7:52 AM Age: 19 years old Clinical indication: Pain; Ankle; Right; Additional info: Right leg edema pain. TECHNIQUE: Imaging protocol: MR of the Right lower extremity without contrast. Exam focused on the ankle. COMPARISON: CR Ankle Min 3V Rt 11/27/2020 5:08 AM FINDINGS: Images are degraded by motion. Bones and cartilage: Normal Joint spaces: No joint effusion. LIGAMENTS: Distal tibiofibular syndesmosis: Unremarkable. No tear. Anterior talofibular ligament: Unremarkable. No tear Posterior talofibular ligament: Unremarkable. No tear. Calcaneofibular ligament: Unremarkable. No tear. Deltoid ligament complex: Unremarkable. No tear. TENDONS: Flexor tendons of foot: Unremarkable as visualized. Tibialis posterior tendon: Mild posterior tibial tenosynovitis. Peroneal tendons: Unremarkable as visualized. Extensor tendons of foot: Unremarkable as visualized. Tibialis anterior tendon: Unremarkable as visualized. Achilles tendon: Unremarkable as visualized. Tarsal canal (Sinus tarsi): Unremarkable. Normal signal of the fat. Tarsal tunnel: Unremarkable. Muscles: Unremarkable. Soft tissues: Diffuse subcutaneous edema with more focal area of subcutaneous fluid along the anterior aspect of the ankle and unger. This is incompletely visualized and extends higher than the submitted images included. This could be a subcutaneous abscess. Post gadolinium images or ultrasound would be helpful in further evaluation. There is very marked subcutaneous edema on the lateral aspect of the ankle and foot. Plantar fascia: Plantar fascia is unremarkable. IMPRESSION: 1. Marked diffuse subcutaneous edema with more focal fluid along the visualized portion of the anterior unger and ankle, which could be a subcutaneous abscess. Post gadolinium images of the leg or ultrasound would be helpful in further evaluation to define this process 2. Mild posterior tibial tenosynovitis
[2020-12-02] MEDS: Ascorbic Acid 500 MG Tab PO SCH (09:17)
[2020-12-02] MEDS: cefTRIAXone 1 GM in Sodium Chloride 0.9% 50 ML IV SCH (12:15)
--- NOTE | 2020-12-02 13:49 | US ---
EXAMINATION: Extremity Non Vascular Rt SEX: Female AGE: 19 years CLINICAL HISTORY: 19-year-old female with anterior right lower extremity redness and swelling. Rule out abscess or hematoma. Interpretation: Sonogram right lower extremity (anterior to the lower pretibial "unger" and ankle) confirms apparent subcutaneous edema but no sign of organized abscess or hematoma. No vascular enhancement soft tissue tumor. No foreign bodies.
[2020-12-02] MEDS: Iron Sucrose Complex 100 MG in Sodium Chloride 0.9% 100 ML IV SCH (14:35)
[2020-12-03] MEDS: Sodium Chloride 0.9% 1,000 ML IV SCH ×2 (03:43→11:09)
[2020-12-03] MEDS: Acetaminophen 325 MG Tab PO PRN ×2 (03:45→14:51)
[2020-12-03 06:50] LABS: ANION GAP 12.9 mEq/L (7-13); CHLORIDE,CL 109 mmol/L (98-107); SODIUM,NA 143 mmol/L (136-145)
--- NOTE | 2020-12-03 08:05 | PCM.SN.2 ---
- Free Text/Narrative Note: START OF DOCTOR ALETHEA PROGRESS NOTE Subjective: The patient Franky that her leg in terms of her pain is unchanged compared to my encounter with her on December 02, 2020 however it appears to be minor. Overnight she denies fever, rigors, nausea, vomiting, cough, wheeze, abdominal pain, chest pain, dyspnea, or any other constitutional complaints. I explained to the patient her current medical condition and plan of care and I have answered all of her questions Objective: General: -Alert -No acute distress -No dyspnea -No tachypnea -Morbidly obese Heart: -Regular rate -Regular rhythm -No murmurs -No gallops -No rubs Lungs: -No wheeze -No rhonchi -No rales Abdomen: -Normal bowel sounds in all four quadrants -No rebound -No guarding -No tenderness Extremities: -2/4 pulse in all four extremities -No clubbing -No cyanosis -Right lower extremity is edematous Additional Details / Additional Findings / Exceptions / Miscellaneous: There is continued decrease in edema of the right lower extremity. The margin of erythema continues to receive. There is a large blood-filled blister which has developed over the last 24 to 36 hours which is slowly increasing in size. Pertinent Laboratory Results / Pertinent Radiology Results / Pertinent Diagnostic Results / Pertinent Vital Signs: Vital signs stable, white blood cell count 12.4, hemoglobin 8.6, MCV 71.6 Assessment / Plan: Right lower extremity edema. Query cellulitis, however ruptured Achilles tendon cannot be excluded given the degree of purpura. Vasculitis is in the differential diagnosis as well. Vancomycin IV to be dosed by pharmacy plus Rocephin 1 g IV daily. Demarcate and date the margin of erythema daily. Right lower extremity ultrasound negative. HIV negative. hepatitis panel pending. MRI of right leg pending Hyponatremia. Will monitor sodium levels intermittently. IV normal saline 75 mils per hour Hypokalemia. Will monitor potassium levels intermittently and supplement as necessary Hyperproteinemia. SPEP pending. UPEP pending. Acute renal insufficiency. Will monitor creatinine intermittently. IV normal s darrel 75 mL's per hour History of self-mutilation Depression Query history of hepatitis C. Hepatitis panel pending Iron deficiency anemia. Will monitor hemoglobin levels intermittently. Fecal o ccult blood pending. Vitamin C 500 mg p.o. daily plus iron sucrose 100 mg IV daily Obesity. Patient counseled regarding lifestyle modification DVT prophylaxis. Bilateral DENNIS herrmannkia Disposition: Anticipate discharge in approximately 24 hours END OF DOCTOR EMAMIS PROGRESS NOTE
[2020-12-03] MEDS: Ascorbic Acid 500 MG Tab PO SCH (09:58)
[2020-12-03] MEDS: cefTRIAXone 1 GM in Sodium Chloride 0.9% 50 ML IV SCH (12:30)
[2020-12-03] MEDS: Iron Sucrose Complex 100 MG in Sodium Chloride 0.9% 100 ML IV SCH (14:50)
[2020-12-04] MEDS: Acetaminophen 325 MG Tab PO PRN (00:46)
[2020-12-04] MEDS: Sodium Chloride 0.9% 1,000 ML IV SCH (05:35)
--- NOTE | 2020-12-04 07:39 | PCM.SN.2 ---
- Free Text/Narrative Note: START OF DOCTOR EMAMIS DISCHARGE SUMMARY Date of Admission: November 30, 2020 Date of Discharge: 7:37 AM on December 04, 2020 Primary Diagnosis: Right lower extremity cellulitis Secondary Diagnosis: Hyponatremia, resolved Hypokalemia, resolved Hyperproteinemia. SPEP and UPEP pending at time of discharge Acute renal insufficiency, resolved History of self-mutilation Depression Query history of hepatitis C. Hepatitis panel pending at time of discharge Iron deficiency anemia Obesity Thrombocytosis Consultations: None Condition on Discharge: Fair Disposition: The patient will be advised to follow-up with her primary care physician or provider 3 to 5 days post discharge for posthospitalization evaluation. The patient has been instructed to return to the emergency department if she sees no improvement or worsening of right lower extremity erythema. If she does return to the hospital, the patient will require transfer for evaluation by infectious disease Discharge Medications: Bactrim DS 1 tab p.o. twice daily. Quantity 20. 0 refills Ferrous sulfate 305 mg p.o. twice daily Vitamin C 500 mg p.o. daily END OF DOCTOR EMAMIS DISCHARGE SUMMARY
--- NOTE | 2020-12-04 08:52 | PCM.SN.2 ---
- Free Text/Narrative Note: START OF DOCTOR EMAMIS DISCHARGE SUMMARY Date of Admission: November 30, 2020 Date of Discharge: 7:37 AM on December 04, 2020 Primary Diagnosis: Right lower extremity cellulitis Secondary Diagnosis: Hyponatremia, resolved Hypokalemia, resolved Hyperproteinemia. SPEP and UPEP pending at time of discharge Acute renal insufficiency, resolved History of self-mutilation Depression Query history of hepatitis C. Hepatitis panel pending at time of discharge Iron deficiency anemia Obesity Thrombocytosis Consultations: None Condition on Discharge: Fair Disposition: The patient will be advised to follow-up with her primary care physician or provider 3 to 5 days post discharge for posthospitalization evaluation. The patient has been instructed to return to the emergency department if she sees no improvement or worsening of right lower extremity erythema. If she does return to the hospital, the patient will require transfer for evaluation by infectious disease Discharge Medications: Bactrim DS 1 tab p.o. twice daily. Quantity 20. 0 refills Ferrous sulfate 305 mg p.o. twice daily Vitamin C 500 mg p.o. daily Patient will be discharged with gauze, ABD, and Kerlix for wound dressing changes to be performed daily END OF DOCTOR EMAMIS DISCHARGE SUMMARY
[2020-12-04] MEDS ORDERED: Ferrous Sulfate 325 MG Tab PO SCH (09:00)
[2020-12-04] MEDS: Ascorbic Acid 500 MG Tab PO SCH (09:54)
[2020-12-04] MEDS: cefTRIAXone 1 GM in Sodium Chloride 0.9% 50 ML IV SCH (14:15)
[2020-12-04 14:20] VITALS: BP 135/87; PULSE 78
== END 2020-12-04 10:30 | disposition home or self-care (01) | DRG 603 ==
LOC: DL.ED 10:25 → DL.MS 11:21
PROVIDERS: ADMIT Internal Medicine; ATTEND Internal Medicine
DX: L03.115 Cellulitis of right lower limb (principal); E87.1 Hypo-osmolality and hyponatremia; F32.9 Major depressive disorder, single episode, unspecified; E66.9 Obesity, unspecified; E87.6 Hypokalemia; E88.09 Other disorders of plasma-protein metabolism, not elsewhere classified; N28.9 Disorder of kidney and ureter, unspecified; D64.9 Anemia, unspecified; D50.9 Iron deficiency anemia, unspecified; D69.2 Other nonthrombocytopenic purpura; Z87.891 Personal history of nicotine dependence; Z88.0 Allergy status to penicillin; Z68.36 Body mass index [BMI] 36.0-36.9, adult; Z20.822 Contact with and (suspected) exposure to COVID-19
CPT/HCPCS: 36415; 73721-RT; 76881-RT; 80053; 80074; 80202; 80305-QW; 82272; 82550; 82728; 83540; 83550; 83605; 83735; 83874; 84155; 84156; 84165; 84166; 84703; 85025; 85610; 85651; 86140; 87040; 87070; 87077; 87389; 93971; 96374; 99222; 99232; 99238; 99284; 99284-25; A9270-GY; J0696; J1200; J1650; J1756; J1885; J2405; J3370; J7030; J7040; J7050; U0002

== ENCOUNTER 2021-10-28 00:40 | Emergency (ER) | payer MEDICAID ==
[2021-10-28 00:58] VITALS: BP 136/92; PULSE 120
[2021-10-28] MEDS ORDERED: Sodium Chloride 0.9% 1,000 ML IV ONE (01:13)
[2021-10-28] MEDS ORDERED: Ondansetron 4 MG/2 ML SDV IVPUSH ONE (01:13)
[2021-10-28] MEDS ORDERED: fentaNYL 100 MCG/2 ML SDV IVPUSH ONE (01:16)
[2021-10-28] MEDS ORDERED: Iopamidol 612 MG/ML 100 ML Bottle IVPUSH ONE (01:16)
[2021-10-28 01:32] LABS: AMPHETAMINES,URINE POSITIVE (NEGATIVE); BARBITURATES,URINE NEGATIVE (NEGATIVE); BENZODIAZEPINE,URINE NEGATIVE (NEGATIVE); MDMA (ECSTASY), URINE POSITIVE (NEGATIVE); METHADONE,URINE NEGATIVE (NEGATIVE); METHAMPHETAMINES,URINE POSITIVE (NEGATIVE); OPIATES,URINE NEGATIVE (NEGATIVE); OXYCODONE,URINE NEGATIVE (NEGATIVE); PHENCYCLIDINE,URINE NEGATIVE (NEGATIVE); TCA,URINE NEGATIVE (NEGATIVE)
[2021-10-28 01:36] LABS: CHLORIDE,CL 98 mmol/L (98-107); SODIUM,NA 133 mmol/L (136-145)
[2021-10-28] MEDS ORDERED: cefTRIAXone 2 GM in Sodium Chloride 0.9% 100 ML IV ONE (03:12)
[2021-10-28] MEDS ORDERED: Potassium Chloride 20 MEQ in Premix Bag 1 BAG IV ONE (03:12)
[2021-10-28] MEDS ORDERED: Sodium Chloride 0.9% 250 ML IV ONE (05:00)
[2021-11-04 07:47] LABS: C.TRACHOMATIS BY TMA Positive (Negative); N.GONORRHOEAE BY TMA Positive (Negative)
== END 2021-10-28 06:08 | disposition home or self-care (01) ==
LOC: DL.ED 00:40
DX: K52.9 Noninfective gastroenteritis and colitis, unspecified (principal); N39.0 Urinary tract infection, site not specified; R82.5 Elevated urine levels of drugs, medicaments and biological substances; Z88.0 Allergy status to penicillin; Z79.899 Other long term (current) drug therapy
CPT/HCPCS: 36415; 74177; 80053; 80305-QW; 81001; 81025; 82150; 83605; 83690; 84702; 85027; 87040; 87086; 87491; 87563; 87591; 96365; 96366; 96375; 99283; 99284-25; J0696; J2405; J3010; J3480; J7030; J7050; Q9967

== ENCOUNTER 2023-03-02 23:29 | Emergency (ER) | payer MEDICAID ==
[2023-03-02] MEDS ORDERED: diphenhydrAMINE 50 MG Cap PO ONE (23:43)
[2023-03-02 23:54] VITALS: BP 120/75; PULSE 74
== END 2023-03-03 00:05 | disposition home or self-care (01) ==
LOC: DL.ED 23:29
DX: L50.9 Urticaria, unspecified (principal); N30.00 Acute cystitis without hematuria; Z88.0 Allergy status to penicillin
CPT/HCPCS: 99283; Q0163; 99282

== ENCOUNTER 2023-09-21 18:46 | Emergency (ER) | payer MEDICAID ==
[2023-09-21 19:28] VITALS: BP 134/85; PULSE 109
[2023-09-21] MEDS: Benzonatate 100 MG Cap PO ONE (19:52)
[2023-09-21] MEDS: Ketorolac 30 MG/ML SDV IM ONE (19:52)
[2023-09-21 19:59] LABS: CORONAVIRUS COVID-19 NAA NEGATIVE (NEGATIVE); INFLUENZA A NAA NEGATIVE (NEGATIVE); INFLUENZA B NAA POSITIVE (NEGATIVE); RESPIRATORY SYNCYTIAL VIR NAA NEGATIVE (NEGATIVE)
== END 2023-09-21 20:33 | disposition home or self-care (01) ==
LOC: DL.ED 18:46
DX: J10.1 Influenza due to other identified influenza virus with other respiratory manifestations (principal); Z79.899 Other long term (current) drug therapy; Z88.0 Allergy status to penicillin
CPT/HCPCS: 0241U; 87081; 87430; 96372; 99283; A9270; J1885

== ENCOUNTER 2023-10-18 23:14 | Emergency (ER) | payer MEDICAID | END 2023-10-18 23:28 | disposition left against medical advice (07) | LOC: DL.ED 23:14 | DX: Z53.21 Procedure and treatment not carried out due to patient leaving prior to being seen by health care provider (principal) ==

== ENCOUNTER 2025-05-09 07:56 | Emergency (ER) | payer MEDICAID ==
[2025-05-09] MEDS ORDERED: Sodium Chloride 0.9% 10 ML Syringe FLUSH PRN (08:24)
[2025-05-09] MEDS: Ondansetron 4 MG/2 ML SDV IVPUSH ONE (08:38)
[2025-05-09 08:52] LABS: BASOPHILS PERCENT AUTO 0.1 % (0.0-1.0); EOSINOPHILS PERCENT AUTO 1.2 % (1.0-3.0); LYMPHOCYTES PERCENT AUTO 11.5 % (20.5-50.1); MONOCYTES PERCENT AUTO 6.0 % (2-8); NEUTROPHILS PERCENT AUTO 81.2 % (42.2-75.2); PLATELET COUNT,PLT 284 10^3/uL (150-450); RED BLOOD CELL COUNT 4.07 10^6/uL (4.2-5.4); WHITE BLOOD CELL COUNT,WBC 7.3 10^3/uL (5.0-10.0)
[2025-05-09 09:15] LABS: A/G RATIO 0.5; ALANINE AMINOTRANSFERASE,ALT 123.0 U/L (14-59); ASPARTATE AMNIOTRANSFERASE,AST 250.0 U/L (15-37); BILIRUBIN TOTAL 0.5 mg/dL (0.2-1.0); BLOOD UREA NITROGEN,BUN 7.0 mg/dL (7-18); CARBON DIOXIDE,CO2 24.0 mmol/L (21-32); CHLORIDE,CL 104.0 mmol/L (98-107); CREATININE 0.69 mg/dL (0.55-1.02); EST CRCL DRUG DOSING (CG) 112.15 mL/min; ESTIMATED GFR 123.0 mL/min (>=60); GLUCOSE RANDOM 123.0 mg/dL (70-99); POTASSIUM,K 3.6 mmol/L (3.5-5.1); PROTEIN TOTAL,TP 9.6 g/dL (6.4-8.2); SODIUM,NA 140.0 mmol/L (136-145)
[2025-05-09 11:27] VITALS: BP 155/105; PULSE 102
== END 2025-05-09 11:15 | disposition home or self-care (01) ==
LOC: DL.ED 07:56
DX: K29.21 Alcoholic gastritis with bleeding (principal); F17.200 Nicotine dependence, unspecified, uncomplicated; Z88.0 Allergy status to penicillin; Z79.899 Other long term (current) drug therapy
CPT/HCPCS: 36415; 80053; 81025; 83690; 85025; 96374; 99284; J2405; J7040

== ENCOUNTER 2025-05-13 16:31 | Emergency (ER) | payer MEDICAID ==
[2025-05-13] MEDS ORDERED: Sodium Chloride 0.9% 10 ML Syringe FLUSH PRN (16:59)
[2025-05-13 17:19] LABS: BASOPHILS PERCENT AUTO 0.1 % (0.0-1.0); EOSINOPHILS PERCENT AUTO 0.6 % (1.0-3.0); LYMPHOCYTES PERCENT AUTO 13.9 % (20.5-50.1); MONOCYTES PERCENT AUTO 7.2 % (2-8); NEUTROPHILS PERCENT AUTO 78.2 % (42.2-75.2); PLATELET COUNT,PLT 242 10^3/uL (150-450); RED BLOOD CELL COUNT 3.86 10^6/uL (4.2-5.4); WHITE BLOOD CELL COUNT,WBC 10.2 10^3/uL (5.0-10.0)
[2025-05-13 17:19] LABS: GLUCOSE,URINE NEGATIVE (NEGATIVE); OCCULT BLOOD,URINE MODERATE (NEGATIVE)
[2025-05-13 17:20] LABS: APPEARANCE,URINE SLIGHTLY CLOUDY (CLEAR)
[2025-05-13 17:29] LABS: SQUAMOUS EPITHELIAL CELLS,UR MODERATE /HPF (NOT SEEN)
[2025-05-13 17:37] LABS: INR 1.1 (0.9-1.2); PTT,PARTIAL THROMBOPLSTIN TIME 27.4 SEC (22.0-34.0)
[2025-05-13 17:38] LABS: ALANINE AMINOTRANSFERASE,ALT 108 U/L (14-59); ASPARTATE AMNIOTRANSFERASE,AST 201 U/L (15-37); BILIRUBIN TOTAL 0.6 mg/dL (0.2-1.0); BLOOD UREA NITROGEN,BUN 5 mg/dL (7-18); CARBON DIOXIDE,CO2 24 mmol/L (21-32); CHLORIDE,CL 102 mmol/L (98-107); CREATININE 0.55 mg/dL (0.55-1.02); GLUCOSE RANDOM 120 mg/dL (70-99); POTASSIUM,K 3.6 mmol/L (3.5-5.1); PROTEIN TOTAL,TP 9.5 g/dL (6.4-8.2); SODIUM,NA 135 mmol/L (136-145)
[2025-05-13 17:39] LABS: A/G RATIO 0.53; ESTIMATED GFR 130 mL/min (>=60); ETHANOL BLOOD MEDICAL < 3 mg/dL (0)
[2025-05-13 17:41] LABS: LACTIC ACID 0.7 mmol/L (0.4-2.0)
[2025-05-13 17:42] LABS: HCG QUALITATIVE,SERUM NEGATIVE (NEGATIVE)
[2025-05-13] MEDS: Iopamidol 612 MG/ML 100 ML Bottle IVPUSH ONE (17:45)
[2025-05-13] MEDS ORDERED: Lactated Ringers 1,000 ML IV ONE (19:24)
[2025-05-13] MEDS: Ketorolac 30 MG/ML SDV IVPUSH ONE (20:17)
[2025-05-13] MEDS: Nitrofurantoin Monohydrate/Macrocrystalline 100 MG Cap PO ONE (20:17)
[2025-05-13 20:35] VITALS: BP 135/84; PULSE 92
== END 2025-05-13 20:29 | disposition home or self-care (01) ==
LOC: DL.ED 16:31
DX: K52.9 Noninfective gastroenteritis and colitis, unspecified (principal); N30.00 Acute cystitis without hematuria; Z88.0 Allergy status to penicillin; Z79.899 Other long term (current) drug therapy
CPT/HCPCS: 36415; 74019; 74177; 80053; 80307; 81001; 83605; 83690; 84703; 85025; 85610; 85730; 87086; 87088; 87186; 96374; 99284-25; A9270-GY; J1885; Q9967